=== PATIENT | female | born 1930 | race Caucasian/White ===

== ENCOUNTER 2017-08-11 18:57 | Inpatient (IN) | payer BC, MEDICARE ==
[2017-08-11 19:55] LABS: Hematocrit 42 % (35-47); Hemoglobin 13.8 g/dl (12.0-16.0); Mean Corpuscular HGB Conc 33 g/dl (31-36); Mean Corpuscular Hemoglobin 28 pg (27-31); Mean Corpuscular Volume 85 fL (80-97); Mean Platelet Volume 7.4 um3 (7.4-10.4); Platelet Count 327 10^3/ul (150-450); Red Blood Count 4.95 10^6/ul (4.0-5.4); Red Cell Distribution Width 15 % (10.5-15); White Blood Count 22.5 10^3/ul (3.5-10.8)
[2017-08-11 20:05] LABS: EGFR Non-African American 83.5 (>60)
[2017-08-11 20:22] LABS: ABS Basophils 0 10^3/ul (0-0.2); ABS Eosinophils 0 10^3/ul (0-0.6); ABS Lymphocytes 0.9 10^3/ul (1.0-4.8); ABS Neutrophils 20.5 10^3/ul (1.5-7.7); ABS Nucleated RBC 0 10^3/ul; Eosinophil % 0 % (0-6); Lymphocyte % 4.1 % (25-47); Nucleated Red Blood Cells % 0
[2017-08-11] MEDS ORDERED: NS 0.9% 1000 ML* 1,000 ML IV SCH (21:15)
--- NOTE | 2017-08-11 21:52 | RAD ---
HISTORY: Shortness of breath COMPARISONS: September 23, 2014 VIEWS: 1: frontal portable view of the chest at 9:35 PM FINDINGS: LINES AND TUBES: None. CARDIOMEDIASTINAL SILHOUETTE: The aorta is tortuous. The cardiomediastinal silhouette is otherwise normal for portable technique. PLEURA: The costophrenic angles are sharp. No pleural abnormalities are noted. LUNG PARENCHYMA: The lungs are clear. ABDOMEN: The upper abdomen is clear. There is no subphrenic gas. BONES AND SOFT TISSUES: Degenerative changes are noted along the spine. IMPRESSION: NO ACTIVE CARDIOPULMONARY DISEASE.
[2017-08-11 22:46] LABS: Urine Appearance Clear; Urine Blood Negative (Negative); Urine Color Amber; Urine Ketones 2+ (Negative); Urine Protein 1+(30 mg/dL) (Negative); Urine Specific Gravity 1.025 (1.010-1.030); Urine Urobilinogen Negative (Negative)
[2017-08-11] MEDS ORDERED: Levofloxacin 500 MG IVPREMIX(* 500 MG/100 ML BAG IVPB ONE (23:07)
[2017-08-11] MEDS ORDERED: Iohexol 300* (CONTRAST) 10 ML SDV IV ONE (23:23)
[2017-08-12] MEDS ORDERED: metroNIDAZOLE IV 500 MG/100ML* 500 MG/100 ML BAG IVPB ONE (00:39)
[2017-08-12] MEDS ORDERED: Ondansetron INJ* 2 MG/ML VIAL IV PRN (01:29)
[2017-08-12] MEDS ORDERED: NS 0.9% 1000 ML* 1,000 ML IV ONE (01:29)
[2017-08-12] MEDS ORDERED: NS 0.9% 1000 ML* 1,000 ML IV SCH ×2 (01:30→08:39)
[2017-08-12] MEDS: metroNIDAZOLE IV 500 MG/100ML* 500 MG/100 ML BAG IVPB SCH ×3 (04:08→19:21)
[2017-08-12] MEDS: Heparin VIAL(*) 5000 UNITS/ML VIAL (FIVE THOUSAND) SUBCUT SCH ×3 (05:53→21:41)
[2017-08-12 07:53] LABS: ABS Basophils 0.1 10^3/ul (0-0.2); ABS Eosinophils 0 10^3/ul (0-0.6); ABS Lymphocytes 0.8 10^3/ul (1.0-4.8); ABS Monocytes 0.9 10^3/ul (0-0.8); ABS Neutrophils 13.7 10^3/ul (1.5-7.7); ABS Nucleated RBC 0 10^3/ul; Eosinophil % 0.1 % (0-6); Hematocrit 33 % (35-47); Hemoglobin 11.2 g/dl (12.0-16.0); Lymphocyte % 5.1 % (25-47); Mean Corpuscular HGB Conc 34 g/dl (31-36); Mean Corpuscular Hemoglobin 28 pg (27-31); Mean Corpuscular Volume 84 fL (80-97); Mean Platelet Volume 7.2 um3 (7.4-10.4); Nucleated Red Blood Cells % 0; Platelet Count 315 10^3/ul (150-450); Red Blood Count 3.96 10^6/ul (4.0-5.4); Red Cell Distribution Width 15 % (10.5-15); White Blood Count 15.5 10^3/ul (3.5-10.8)
--- NOTE | 2017-08-12 07:53 | RAD ---
INDICATION: Abdominal pain. COMPARISON: There are no prior studies available for comparison. TECHNIQUE: A CT scan of the abdomen and pelvis was performed with intravenous and oral contrast following intravenous injection of 72 ml of Omnipaque 300 nonionic contrast. Contiguous axial sections were obtained from the lung bases through the symphysis pubis. Images were reconstructed in the coronal and sagittal planes. FINDINGS: There is mild dependent bilateral lower lobe subsegmental atelectasis. No pleural effusion is present. The liver and spleen are within normal limits in size without significant focal abnormality. No calcified gallstones are seen. The pancreas appears to be within normal limits in size. There is mild thickening of the left adrenal gland. The right adrenal gland appears to be within normal limits. There is mild perinephric stranding. The kidneys are normal in size. No focal renal abnormality or hydronephrosis is seen. No urinary bladder wall thickening was present. The aorta is normal in caliber with moderate calcific plaque present. No significant enlarged retroperitoneal lymph nodes are seen. The stomach, small and large bowel appear nondistended. The appendix is not visualized. There is mild to moderate descending and sigmoid diverticulosis. There is circumferential thickening of the mid sigmoid colon with mild stranding in the adjacent mesenteric fat. These findings are nonspecific although suggestive of diverticulitis or colitis. Recommend clinical follow-up to resolution to exclude an underlying mass. No abscess is seen. The patient is status post hysterectomy. No free intraperitoneal air or fluid is seen. There is a moderate to severe chronic appearing compression fracture of the T11 vertebral body and mild compression fractures of the inferior endplates of the L3 and L4 vertebral bodies. IMPRESSION: 1. THICKENING OF THE WALL OF THE MID SIGMOID COLON LIKELY DUE TO DIVERTICULITIS LESS LIKELY COLITIS. RECOMMEND FOLLOW-UP TO RESOLUTION AND EXCLUDE AN UNDERLYING COLONIC MASS. 2. CHRONIC APPEARING VERTEBRAL COMPRESSION FRACTURES NOTED.
--- NOTE | 2017-08-12 08:19 | PN ---
Subjective - Subjective Reason for Note: Progress Note History: I have reviewed the history from the patient. Her daughter Marli Chaney lives in [place] and came to [place] 5 days ago for the summer. I obtained a history from her. A few weeks back - same symptoms - abdo pain, nausea and diarrhea. This recovered - but the stomach cramping ( chronic) remained. She stopped eating. She felt sick. 2 days ago she had an acute onset of being up at night with vomiting, chills and diarrhea. She was violently ill. She has had anorexia, in bed sleeping a lot. She couldn't sit up as she was in pain - worse than her chronic pain. Her hearing has worsened and she needs hearing aids. She is living independently. Her memory - short term memory loss. I discussed capacity - daughter knows she wants to be DNR and thinks she has capacity. 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 Osteoporosis (Chronic) M81.0 Vertebral compression fracture (Chronic) [id number] Current Medications: Current Medications Acetaminophen (Tylenol Tab*) 650 mg PO Q4H PRN PRN Reason: FEVER/PAIN Heparin Sodium (Porcine) (Heparin Vial(*)) 5,000 units SUBCUT Q8HR [facility] Last Admin: 08/12/17 05:53 Dose: 5,000 units Ciprofloxacin/Dextrose (Cipro 400 Mg Ivpremix(*)) 400 mg in 200 mls @ 200 mls/ hr IVPB Q12H [facility] Metronidazole/Sodium Chloride (Flagyl 500 Mg Ivpb*) 500 mg in 100 mls @ 100 mls /hr IVPB Q8H [facility] Last Admin: 08/12/17 04:08 Dose: 100 mls/hr Sodium Chloride (Ns 0.9% 1000 Ml*) 1,000 mls @ 100 mls/hr IV PER RATE [facility] Last Admin: 08/12/17 04:11 Dose: 100 mls/hr Ondansetron HCl (Zofran Inj*) 4 mg IV Q6H PRN PRN Reason: NAUSEA - Review of Systems Pulmonary: Negative: Cough, Sputum, Respiratory Distress Cardiology: Negative: Chest Pain, Shortness of Breath, Palpitations, Swelling of Ankles Gastroenterology: Positive: Abdominal Pain, Nausea, Vomiting, Anorexia, Diarrhea , Change in Bowel Habits Negative: Constipation Genital - Urinary: Negative: Dysuria, Hematuria Musculoskeletal: Positive: Low Back Pain Neurology: Positive: Headache Psychiatry: Positive: Normal Home Medications: Home Medications Medication Instructions Recorded Confirmed Type Lisinopril/HCTZ (NF) 1 tab PO QAM 08/11/17 08/11/17 History [Zestoretic (NF)] Allergies: Allergies Allergy/AdvReac Type Severity Reaction Status Date / Time No Known Allergies Allergy Verified 10/31/13 11:41 Objective - Vital Signs Vital Signs: Vital Signs 08/12/17 08/12/17 08/12/17 01:33 02:00 02:04 Temperature Pulse Rate 92 89 89 Respiratory Rate Blood Pressure 144/78 154/59 (mmHg) O2 Sat by Pulse 98 98 97 Oximetry 08/12/17 08/12/17 08/12/17 02:34 02:56 03:00 Temperature 98.5 F 98.8 F Pulse Rate 84 89 92 Respiratory 20 17 Rate Blood Pressure 165/74 154/59 136/52 (mmHg) O2 Sat by Pulse 97 98 98 Oximetry - Intake and Output Intake and Output: Intake & Output 08/09/17 08/10/17 08/11/17 08/12/17 11:59 11:59 11:59 11:59 Intake Total 1060 Balance 1060 Weight 118 lb 9.6 oz Intake: IV Fluids 1060 NS (0.9%) 60 Oral 0 Intake and Output Start: 08/12/17 02: 09 Freq: DAILY@0600,1400,2200 Status: Active Protocol: Document 08/12/17 05:36 [id number] (Rec: 08/12/17 05:36 [id number]) - Physical Exam General Physical Exam Comment: She is having diarrhea. She recognizes me. General: No Cyanosis, No Anemia, No Jaundice, No Clubbing Skin: Normal: Rash Lungs and Chest: Yes: Chest Expansion Full, Chest Expansion Symetrica, Percussion Note Resonant, Vessicular Breath Sounds. No: Crackles, Wheezes Heart Rate and Rhythm: Regular Additional Cardiovascular: Yes: Normal Heart Sounds. No: Heart Murmur, Carotid Bruits, Pedal Edema Abdominal Exam: Yes: Soft, Abdominal Tenderness, Bowel Sounds Present. No: Distention, Abdominal Mass, Hepatomegaly, Guarding, Rebound Tenderness - Extremities Cranial Nerves II-XII Intact: Yes Limbs: Normal Power, Normal Tone - Neuro Orientation: Person, Time Speech: Expressive Results - Results Lab Results: Laboratory Results - last 24 hr 08/12/17 08/12/17 07:47 07:47 WBC 15.5 H RBC 3.96 L Hgb 11.2 L Hct 33 L MCV 84 MCH 28 MCHC 34 RDW 15 Plt Count 315 MPV 7.2 L Neut % (Auto) 88.2 H Lymph % (Auto) 5.1 L Yates % (Auto) 6.1 Eos % (Auto) 0.1 Baso % (Auto) 0.5 Absolute Neuts (auto) 13.7 H Absolute Lymphs (auto) 0.8 L Absolute Monos (auto) 0.9 H Absolute Eos (auto) 0 Absolute Basos (auto) 0.1 Absolute Nucleated RBC 0 Nucleated RBC % 0 Sodium 123 L Potassium 3.4 L Chloride 94 L Carbon Dioxide 21 L Anion Gap 8 BUN 9 Creatinine 0.50 L Est GFR ( Amer) 150.4 Est GFR (Non-Af Amer) 117.0 BUN/Creatinine Ratio 18.0 Glucose 92 Calcium 7.9 L Radiology Results: Patient Name: GAYLE FARAH Medical Record#: [id number] Ordering Physician: Rowdy Hitchcock MD Acct.#: [id number] : 1930 Age: 86 Sex: F Location: [address] [place] [address] Exam Date: 08/11/172103 ADM Status: ADM IN Order Information: CT ABD/PEL W Accession Number: [id number] CPT: 79042 INDICATION: Abdominal pain. COMPARISON: There are no prior studies available for comparison. TECHNIQUE: A CT scan of the abdomen and pelvis was performed with intravenous and oral contrast following intravenous injection of 72 ml of Omnipaque 300 nonionic contrast. Contiguous axial sections were obtained from the lung bases through the symphysis pubis. Images were reconstructed in the coronal and sagittal planes. FINDINGS: There is mild dependent bilateral lower lobe subsegmental atelectasis. No pleural effusion is present. The liver and spleen are within normal limits in size without significant focal abnormality. No calcified gallstones are seen. The pancreas appears to be within normal limits in size. There is mild thickening of the left adrenal gland. The right adrenal gland appears to be within normal limits. There is mild perinephric stranding. The kidneys are normal in size. No focal renal abnormality or hydronephrosis is seen. No urinary bladder wall thickening was present. The aorta is normal in caliber with moderate calcific plaque present. No significant enlarged retroperitoneal lymph nodes are seen. The stomach, small and large bowel appear nondistended. The appendix is not visualized. There is mild to moderate descending and sigmoid diverticulosis. There is circumferential thickening of the mid sigmoid colon with mild stranding in the adjacent mesenteric fat. These findings are nonspecific although suggestive of diverticulitis or colitis. Recommend clinical follow-up to resolution to exclude an underlying mass. No abscess is seen. The patient is status post hysterectomy. No free intraperitoneal air or fluid is seen. There is a moderate to severe chronic appearing compression fracture of the T11 vertebral body and mild compression fractures of the inferior endplates of the L3 and L4 vertebral bodies. IMPRESSION: 1. THICKENING OF THE WALL OF THE MID SIGMOID COLON LIKELY DUE TO DIVERTICULITIS LESS LIKELY COLITIS. RECOMMEND FOLLOW-UP TO RESOLUTION AND EXCLUDE AN UNDERLYING COLONIC MASS. 2. CHRONIC APPEARING VERTEBRAL COMPRESSION FRACTURES NOTED. <Electronically signed by Good Delacruz MD in OV> 08/12/17749 Dictated By: Good Delacruz MD Dictated Date/Time: 08/12/17 075 Transcribed Date/Time: 08/12/17 0738 Copy to: Patient Name: GAYLE FARAH Medical Record#: [id number] Ordering Physician: Rowdy Hitchcock MD Acct.#: [id number] : 1930 Age: 86 Sex: F Location: EMERGENCY DEPARTMENT Exam Date: 08/11/172121 ADM Status: REG ER Order Information: CHEST AP PORTABLE Accession Number: [id number] CPT: 78573 HISTORY: Shortness of breath COMPARISONS: September 23, 2014 VIEWS: 1: frontal portable view of the chest at 9:35 PM FINDINGS: LINES AND TUBES: None. CARDIOMEDIASTINAL SILHOUETTE: The aorta is tortuous. The cardiomediastinal silhouette is otherwise normal for portable technique. PLEURA: The costophrenic angles are sharp. No pleural abnormalities are noted. LUNG PARENCHYMA: The lungs are clear. ABDOMEN: The upper abdomen is clear. There is no subphrenic gas. BONES AND SOFT TISSUES: Degenerative changes are noted along the spine. IMPRESSION: NO ACTIVE CARDIOPULMONARY DISEASE. <Electronically signed by Rd Chen MD in OV> 08/11/172147 Dictated By: Rd Chen MD Dictated Date/Time: 08/11/172147 Transcribed Date/Time: 08/11/172147 Copy to: CC:Rowdy Hitchcock MD; Pineda Mendez MD Imaging - [facility] Imaging [facility] Urgent [facility] Urgent [place] [address] [address] ph ([phone]) ph ([phone]) ph ([phone]) 1 of 1 1 of 2 Assessment - Problem List Assessment: Patient Problems Abdominal pain (Acute) Acute diverticulitis (Acute) DNR (do not resuscitate) (Acute) Hypo-osmolality and hyponatremia (Acute) Nausea vomiting and diarrhea (Acute) Depression (Chronic) Essential hypertension (Chronic) GERD (gastroesophageal reflux disease) (Chronic) Low back pain (Chronic) Memory impairment of gradual onset (Chronic) Osteoporosis (Chronic) Vertebral compression fracture (Chronic) Plan: Abdominal pain (Acute)Acute diverticulitis (Acute) Nausea vomiting and diarrhea (Acute) Our working diagnosis is acute diverticulitis. However, it remains possible she has colitis or a bowel malignancy. I will check a CEA. If she doesn't respond to antibacterial treatment, I will obtain a GI consultation. Thus far her WBC has come down some. She is hemodynamically stable. DNR (do not resuscitate) (Acute) Hypo-osmolality and hyponatremia (Acute) Her sodium has come up to 123. I will limit oral fluids and stop IV saline - her BUN/CR are on target. For Q12 hour BMP Depression (Chronic) According to daughter, this is inactive Essential hypertension (Chronic) Not exacerbated GERD (gastroesophageal reflux disease) (Chronic) Vertebral compression fracture (Chronic) inactive Osteoporosis (Chronic)Low back pain (Chronic) chronic problem Memory impairment of gradual onset (Chronic) - she has not had an OV to my office since 03/19/2015. This may relate to her memory impairment. Her daughter is in town and states she has short term memory issues, but appears to be safe. I will address this. I spoke to the patient and to her daughter Marli Chaney on the phone. I told them the likely therapeutic plan and they agreed with this.
--- NOTE | 2017-08-12 11:03 | HP ---
CC: Dr. Mendez * HISTORY AND PHYSICAL: DATE OF ADMISSION: 08/12/17 PRIMARY CARE PROVIDER: Dr. Mendez. ATTENDING PHYSICIAN WHILE IN THE HOSPITAL: Dr. Anil Quach * (report being dictated by Altaf Snyder NP). CHIEF COMPLAINT: 1. Nausea. 2. Diarrhea. 3. Lower abdominal cramping. 4. Vomiting. HISTORY OF PRESENT ILLNESS: Ms. Sanchez is an 86-year-old female patient, she really carries a history of hypertension and GERD only. She also has a history of tobacco abuse. She smokes about half a pack a day. She has been smoking for 50 plus years. She is coming in today stating that last couple of days, she has had progressive worsening lower abdominal cramping that is worse, that has been coming and going in waves. Mostly, she describes it on the right lower and left lower quadrants. She says it has been getting progressively worse. The daughter does state that she has a long-standing history of abdominal pain but the characteristics of this seemed to be worse. In addition to this, the patient has also been having complaints of watery explosive diarrhea that she has been having for the last couple of days; it has been getting worse. There has been a decreased appetite. The patient thinks that she may have had chills and she has had intermittent episodes of nausea and vomiting in the last the couple of days as well. The patient denied having any chest pain or shortness of breath. There have been no cold symptoms or URI symptoms. No coughing and no shortness of breath. She denied any abdominal distention and denied having any bloody stools, tarry stools, or denied any coffee-ground emesis or radha blood within her emesis. There have been no known sick contacts; however, the patient does receive care with aides. In addition to this, the patient also does have some grandchildren as well. She came into the ED today and it was noted that she had a significant white count, sodium was low, her CRP was up, and because of this we were asked to evaluate for admission. PAST MEDICAL HISTORY: Significant for: 1. Hypertension. 2. GERD. PAST SURGICAL HISTORY: 1. She has had tonsillectomy. 2. Hysterectomy. 3. Cataract extraction. 4. She has had esophageal stretching. MEDICATIONS: Home meds according to the list provided include lisinopril/ hydrochlorothiazide 1 tablet daily. ALLERGIES TO MEDICATIONS: Include no known drug allergies. FAMILY HISTORY: She says her mother of old age. Father had a history of alcoholism and cirrhosis. SOCIAL HISTORY: She is a [id number]-a-day smoker. Does not drink alcohol. She smoked for about 50 plus years. Surrogate decision makers are her children. REVIEW OF SYSTEMS: There is no documented fever. She is denying significant weight change. There is no double vision. Denies having any ear discharge. No rhinorrhea. No sore throat, no thyroid enlargement. Denied having any chest pain. There is no orthopnea. There is no nocturnal dyspnea. She does admit to abdominal pain, nausea, vomiting, and diarrhea per my HPI. There is no dysuria, no frequency. No seizure, no loss of consciousness. No pruritus and no skin ulcerations. Review of 14 systems completed, all others negative. PHYSICAL EXAMINATION GENERAL: At this time, Ms. Sanchez is an 86-year-old female patient. She is sitting in the ED stretcher. She does not appear to be in any acute distress. VITAL SIGNS: Blood pressure 129/76, pulse 97, respirations 18, O2 sat 96%, temperature 98.9. HEENT: Head is atraumatic and normocephalic. Eyes: EOMs are intact. Sclerae are anicteric and not pale. Throat: Oral mucosa appears to be dry. No oropharyngeal erythema. NECK: Supple. LUNGS: Clear to auscultation bilaterally. No wheezes, rales, or rhonchi. HEART: Sounds S1, S2. Regular rate and rhythm. No murmurs, rubs, or gallops. ABDOMEN: Soft, it was flat. Tenderness was elicited in the left lower quadrant. EXTREMITIES: Pulses were 2+ throughout. She is moving all 4 extremities with 5 /5 strength. NEUROLOGICAL: She is awake, she is alert, she is oriented to place and self. Speech clear. Tongue midline. [employer] were equal. No facial drooping. No gross focal deficits. SKIN: Intact. DIAGNOSTIC STUDIES/LAB DATA: WBC of 22.5, RBC of 4.95, hemoglobin 13.8, hematocrit 42, platelet count 327. Sodium is 120, potassium is 3.9, chloride of 88, bicarb 22, BUN 13, creatinine 0.67, glucose 99, serum osmol 253, lactate 1, calcium 9.1. Total bili 0.9, AST 15, ALT 8, alk phos 59. CRP 192. Lipase 15. Urine showed 1+ protein, 2+ ketones, 3+ leukocyte esterase, 3+ wbc's, 1+ rbc 's, absent bacteria, her urine osmol was 739, urine sodium was less than 18. She did have an abdominal and pelvis CT today along with a chest x-ray. Chest x-ray did show no active cardiopulmonary disease. CT impression: Moderate wall thickening and adjacent edema involving the proximal sigmoid colon likely due to diverticulitis or colitis. Recommend followup to ensure resolution to exclude underlying colon mass. No evidence of perforation or abscess at this time. No evidence of bowel obstruction or free air. Appendix is not visualized. She has a compression fracture at T11, which is chronic appearing and she had bilateral perinephric edema. No renal or urinary calculi. Old medical records were reviewed. ASSESSMENT AND PLAN: Ms. Sanchez is an 86-year-old female patient coming into the ED today with complaints of 2 days' history of diarrhea with nausea, vomiting, and lower abdominal cramping. She will be admitted under inpatient status for: 1. Colitis with signs of systemic inflammatory response syndrome and sepsis. She does have an obvious infection; it could be viral. It makes me concerned that this is not diverticulitis since that she is having the vomiting and the pain is kind of coming and going and cramps. So, this could be gastroenteritis ; it is viral. I do think she deserves antibiotics in the form of Cipro and Flagyl. She got Levaquin down here tonight, so I will give her Cipro tomorrow evening. The patient also will be given a liter of fluid. She will be pancultured. I will go ahead and put her on clear liquid diet and we will continue to follow her. 2. Hypertension. I am going to hold her medications in the setting of acute illness. 3. Gastroesophageal reflux disease. Continue her current medical regimen. 4. Hyponatremia. This is probably secondary to dehydration from the diarrhea and the hydrochlorothiazide. I am going to stop the hydrochlorothiazide. I am going to hydrate the patient. I am going to repeat the BMP in the morning and follow it every 6 hours. 5. DVT prophylaxis. She is high risk. She will be placed on heparin subcu. 6. Code status. She wished to be a DNR. 7. Fluids, electrolytes, and nutrition. Clear liquid diet and then again normal saline at 100 an hour after a bolus down here in the ER. TIME SPENT: On the admission was 60 minutes; greater than half that time was spent [id number] with the patient, obtaining my history and physical, the other half of the time spent going over the plan of care with the patient and implementing the plan of care. I did discuss plan of care with my attending, Dr. Quach; he is in agreement. ALTAF SNYDER, DIE BAKER [id number]/CPS #: [id number] KELSIE
[2017-08-12] MEDS ORDERED: Ondansetron 40 MG VIAL* 2 MG/ML 20 ML VIAL IV PRN (14:00)
[2017-08-12] MEDS: Ciprofloxacin 400MG IVPREMIX(* 400 MG/200 ML BAG IVPB SCH ×2 (19:27→21:11)
[2017-08-13] MEDS: metroNIDAZOLE IV 500 MG/100ML* 500 MG/100 ML BAG IVPB SCH ×3 (02:09→17:59)
[2017-08-13] MEDS: Heparin VIAL(*) 5000 UNITS/ML VIAL (FIVE THOUSAND) SUBCUT SCH ×3 (05:31→21:32)
[2017-08-13] MEDS: Ciprofloxacin 400MG IVPREMIX(* 400 MG/200 ML BAG IVPB SCH ×2 (08:44→20:24)
[2017-08-13 08:53] LABS: ABS Basophils 0.1 10^3/ul (0-0.2); ABS Eosinophils 0.1 10^3/ul (0-0.6); ABS Lymphocytes 1.5 10^3/ul (1.0-4.8); ABS Monocytes 1.1 10^3/ul (0-0.8); ABS Neutrophils 6.9 10^3/ul (1.5-7.7); ABS Nucleated RBC 0 10^3/ul; Eosinophil % 0.7 % (0-6); Hematocrit 31 % (35-47); Hemoglobin 10.5 g/dl (12.0-16.0); Lymphocyte % 15.9 % (25-47); Mean Corpuscular HGB Conc 34 g/dl (31-36); Mean Corpuscular Hemoglobin 29 pg (27-31); Mean Corpuscular Volume 84 fL (80-97); Mean Platelet Volume 7.7 um3 (7.4-10.4); Nucleated Red Blood Cells % 0; Platelet Count 288 10^3/ul (150-450); Red Blood Count 3.67 10^6/ul (4.0-5.4); Red Cell Distribution Width 15 % (10.5-15); White Blood Count 9.7 10^3/ul (3.5-10.8)
[2017-08-13 09:18] LABS: EGFR Non-African American 139.2 (>60)
--- NOTE | 2017-08-13 11:02 | PN ---
Subjective - Subjective Reason for Note: Progress Note History: She is feeling much better today. She has had no nausea or vomiting. The diarrhea has stopped. She continues to have lower abdo tenderness. 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 Osteoporosis (Chronic) M81.0 Vertebral compression fracture (Chronic) [id number] Current Medications: Current Medications Acetaminophen (Tylenol Tab*) 650 mg PO Q4H PRN PRN Reason: FEVER/PAIN Heparin Sodium (Porcine) (Heparin Vial(*)) 5,000 units SUBCUT Q8HR [facility] Last Admin: 08/13/17 05:31 Dose: 5,000 units Ciprofloxacin/Dextrose (Cipro 400 Mg Ivpremix(*)) 400 mg in 200 mls @ 200 mls/ hr IVPB Q12H [facility] Last Admin: 08/13/17 08:44 Dose: 200 mls/hr Metronidazole/Sodium Chloride (Flagyl 500 Mg Ivpb*) 500 mg in 100 mls @ 100 mls /hr IVPB Q8H [facility] Last Admin: 08/13/17 09:51 Dose: 100 mls/hr Sodium Chloride (Ns 0.9% 1000 Ml*) 1,000 mls @ 70 mls/hr IV PER RATE [facility] Last Admin: 08/12/17 17:37 Dose: 70 mls/hr Ondansetron HCl (Zofran 40 Mg Vial*) 4 mg IV Q6H PRN PRN Reason: NAUSEA Last Admin: 08/12/17 14:29 Dose: 4 mg - Review of Systems Constitutional Symptoms: Yes: Weakness, No: Fever Pulmonary: Negative: Cough, Sputum Cardiology: Negative: Chest Pain, Shortness of Breath, Palpitations, Swelling of Ankles Gastroenterology: Positive: Normal, Abdominal Pain Negative: Nausea, Vomiting, Anorexia, Constipation, Diarrhea Home Medications: Home Medications Medication Instructions Recorded Confirmed Type Lisinopril/HCTZ 20/25(NF) 1 tab PO QAM 08/11/17 08/11/17 History [Zestoretic (NF)] Allergies: Allergies Allergy/AdvReac Type Severity Reaction Status Date / Time No Known Allergies Allergy Verified 10/31/13 11:41 Objective - Vital Signs Vital Signs: Vital Signs 08/12/17 08/12/17 08/12/17 15:08 15:15 19:49 Temperature 98.0 F 98.0 F 98.7 F Pulse Rate 79 79 81 Respiratory 17 17 17 Rate Blood Pressure 135/46 135/46 147/58 (mmHg) O2 Sat by Pulse 99 99 99 Oximetry 08/12/17 08/13/17 08/13/17 23:05 02:47 04:28 Temperature 98.8 F 98.0 F Pulse Rate 80 81 Respiratory 16 16 Rate Blood Pressure 109/43 120/42 (mmHg) O2 Sat by Pulse 95 97 97 Oximetry 08/13/17 08/13/17 07:14 08:00 Temperature 98.6 F Pulse Rate 71 Respiratory 18 18 Rate Blood Pressure 132/41 (mmHg) O2 Sat by Pulse 98 Oximetry - Intake and Output Intake and Output: Intake & Output 08/10/17 08/11/17 08/12/17 08/13/17 11:59 11:59 11:59 11:59 Intake Total 1634 1300 Output Total 352 Balance 1634 948 Weight 118 lb 9.6 oz Intake: IV Fluids 1525 580 NS (0.9%) 525 580 IVPB 109 ABX - FLAGYL 109 Oral 0 720 Output: Urine 352 Other: Estimated Void Small # Bowel Movements 0 Estimated Stool Amount Small # Voids 0 ADLs: Meal Record Start: 08/12/17 02: 09 Freq: DAILY@0900,1400,1800 Status: Active Protocol: Document 08/12/17 09:00 [id number] (Rec: 08/12/17 10:20 [id number] MED-C09) Document 08/12/17 14:00 [id number] (Rec: 08/12/17 14:21 [id number] MED-C11) Document 08/12/17 18:00 [id number] (Rec: 08/12/17 18:30 [id number] MED-C09) Document 08/13/17 09:00 [id number] (Rec: 08/13/17 09:55 [id number] MED-M04) Intake and Output Start: 08/12/17 02: 09 Freq: DAILY@0600,1400,2200 Status: Active Protocol: Document 08/12/17 05:36 [id number] (Rec: 08/12/17 05:36 [id number] MED-C09) Document 08/12/17 14:00 [id number] (Rec: 08/12/17 14:21 [id number] MED-C11) Document 08/12/17 15:36 [id number] (Rec: 08/12/17 15:36 [id number] MED-C11) Document 08/12/17 20:53 [id number] (Rec: 08/12/17 20:54 [id number] MED-C09) Document 08/13/17 06:00 [id number] (Rec: 08/13/17 06:37 [id number] MED-C11) - Physical Exam General Physical Exam Comment: Warm and well perfused - in no distress General: No Cyanosis, No Anemia, No Jaundice, No Clubbing Skin: Normal: Rash Lungs and Chest: Yes: Chest Expansion Full, Chest Expansion Symetrica, Percussion Note Resonant, Vessicular Breath Sounds. No: Crackles, Wheezes Heart Rate and Rhythm: Regular Additional Cardiovascular: Yes: Normal Heart Sounds. No: Heart Murmur, Pedal Edema Abdominal Exam: Yes: Soft, Abdominal Tenderness - mild lower quadrant tenderness , Bowel Sounds Present. No: Distention, Abdominal Mass, Hepatomegaly, Guarding , Rebound Tenderness Results - Results Lab Results: Laboratory Results - last 24 hr 08/12/17 08/13/17 08/13/17 14:58 08:31 08:31 WBC 9.7 RBC 3.67 L Hgb 10.5 L Hct 31 L MCV 84 MCH 29 MCHC 34 RDW 15 Plt Count 288 MPV 7.7 Neut % (Auto) 71.0 Lymph % (Auto) 15.9 L Piatt % (Auto) 11.6 H Eos % (Auto) 0.7 Baso % (Auto) 0.8 Absolute Neuts (auto) 6.9 Absolute Lymphs (auto) 1.5 Absolute Monos (auto) 1.1 H Absolute Eos (auto) 0.1 Absolute Basos (auto) 0.1 Absolute Nucleated RBC 0 Nucleated RBC % 0 Sodium 123 L 128 L Potassium 3.3 L 3.2 L Chloride 95 L 100 L Carbon Dioxide 21 L 20 L Anion Gap 7 8 BUN 9 5 L Creatinine 0.54 0.43 L Est GFR ( Amer) 137.7 179.0 Est GFR (Non-Af Amer) 107.0 139.2 BUN/Creatinine Ratio 16.7 11.6 Glucose 79 89 Calcium 7.4 L 7.7 L C-Reactive Protein 87.09 H Carcinoembryonic Ag 5.3 H Assessment - Problem List Assessment: Patient Problems Abdominal pain (Acute) Acute diverticulitis (Acute) DNR (do not resuscitate) (Acute) Hypo-osmolality and hyponatremia (Acute) Nausea vomiting and diarrhea (Acute) Depression (Chronic) Essential hypertension (Chronic) GERD (gastroesophageal reflux disease) (Chronic) Low back pain (Chronic) Memory impairment of gradual onset (Chronic) Osteoporosis (Chronic) Vertebral compression fracture (Chronic) Plan: She is improving. I will stop the IVF. She will progress her diet. I will have her mobilized with an aim to discharging her tomorrow. I discussed this with the patient and called Marli Chaney, her daughter.
[2017-08-13] MEDS: Acetaminophen TAB* 325 MG PO PRN (13:33)
[2017-08-14] MEDS: metroNIDAZOLE IV 500 MG/100ML* 500 MG/100 ML BAG IVPB SCH ×2 (02:03→12:55)
[2017-08-14] MEDS: Acetaminophen TAB* 325 MG PO PRN (03:12)
[2017-08-14] MEDS: Heparin VIAL(*) 5000 UNITS/ML VIAL (FIVE THOUSAND) SUBCUT SCH ×2 (05:35→14:31)
[2017-08-14 05:54] LABS: ABS Basophils 0.1 10^3/ul (0-0.2); ABS Eosinophils 0.1 10^3/ul (0-0.6); ABS Lymphocytes 2.2 10^3/ul (1.0-4.8); ABS Monocytes 1.1 10^3/ul (0-0.8); ABS Neutrophils 5.9 10^3/ul (1.5-7.7); ABS Nucleated RBC 0 10^3/ul; Eosinophil % 1.3 % (0-6); Hematocrit 31 % (35-47); Hemoglobin 10.7 g/dl (12.0-16.0); Lymphocyte % 23.3 % (25-47); Mean Corpuscular HGB Conc 34 g/dl (31-36); Mean Corpuscular Hemoglobin 28 pg (27-31); Mean Corpuscular Volume 83 fL (80-97); Mean Platelet Volume 7.4 um3 (7.4-10.4); Nucleated Red Blood Cells % 0.1; Platelet Count 324 10^3/ul (150-450); Red Blood Count 3.76 10^6/ul (4.0-5.4); Red Cell Distribution Width 15 % (10.5-15); White Blood Count 9.3 10^3/ul (3.5-10.8)
[2017-08-14 06:16] LABS: EGFR Non-African American 119.7 (>60)
[2017-08-14 09:31] VITALS: BP 139/60
--- NOTE | 2017-08-14 10:22 | PN ---
Subjective - Subjective Reason for Note: Discharge Note History: She is much better. She has no further nausea, vomiting and doesn't remember when she had her last BM. She would like to go home. 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 Osteoporosis (Chronic) M81.0 Vertebral compression fracture (Chronic) [id number] Current Medications: Current Medications Acetaminophen (Tylenol Tab*) 650 mg PO Q4H PRN PRN Reason: FEVER/PAIN Last Admin: 08/14/17 03:12 Dose: 650 mg Heparin Sodium (Porcine) (Heparin Vial(*)) 5,000 units SUBCUT Q8HR [facility]ST Last Admin: 08/14/17 05:35 Dose: 5,000 units Ciprofloxacin/Dextrose (Cipro 400 Mg Ivpremix(*)) 400 mg in 200 mls @ 200 mls/ hr IVPB Q12H LAST Last Admin: 08/13/17 20:24 Dose: 200 mls/hr Metronidazole/Sodium Chloride (Flagyl 500 Mg Ivpb*) 500 mg in 100 mls @ 100 mls /hr IVPB Q8H LAST Last Admin: 08/14/17 02:03 Dose: 100 mls/hr Ondansetron HCl (Zofran 40 Mg Vial*) 4 mg IV Q6H PRN PRN Reason: NAUSEA Last Admin: 08/12/17 14:29 Dose: 4 mg Home Medications: Home Medications Medication Instructions Recorded Confirmed Type Lisinopril/HCTZ (NF) 1 tab PO QAM 08/11/17 08/11/17 History [Zestoretic (NF)] Allergies: Allergies Allergy/AdvReac Type Severity Reaction Status Date / Time No Known Allergies Allergy Verified 10/31/13 11:41 Objective - Vital Signs Vital Signs: Vital Signs 08/13/17 08/13/1718 11:24 15:07 19:09 Temperature 97.8 F 97.7 F 98.0 F Pulse Rate 66 68 79 Respiratory 18 18 18 Rate Blood Pressure 127/42 137/54 137/67 (mmHg) O2 Sat by Pulse 99 100 99 Oximetry 08/13/17 08/13/17 08/14/17 20:00 23:12 00:00 Temperature 97.7 F Pulse Rate 80 Respiratory 17 16 Rate Blood Pressure 133/52 (mmHg) O2 Sat by Pulse 100 98 Oximetry 08/14/17 08/14/17 03:11 07:56 Temperature 97.8 F 98.7 F Pulse Rate 84 73 Respiratory 16 18 Rate Blood Pressure 145/41 139/60 (mmHg) O2 Sat by Pulse 98 98 Oximetry - Intake and Output Intake and Output: Intake & Output 08/11/17 08/12/17 08/13/17 08/14/17 11:59 11:59 11:59 11:59 Intake Total 1634 2150 200 Output Total 352 775 Balance 1634 1798 -575 Weight 118 lb 9.6 oz Intake: IV Fluids 1525 1430 NS (0.9%) 525 1430 IVPB 109 ABX - FLAGYL 109 Oral 0 720 200 Output: Urine 352 775 Other: Estimated Void Small Medium # Bowel Movements 0 1 Estimated Stool Amount Small Small # Voids 0 0 ADLs: Meal Record Start: 08/12/17 02: 09 Freq: DAILY@0900,1400,1800 Status: Active Protocol: Document 08/12/17 09:00 [id number] (Rec: 08/12/17 10:20 [id number] MED-C09) Document 08/12/17 14:00 [id number] (Rec: 08/12/17 14:21 [id number] MED-C11) Document 08/12/17 18:00 [id number] (Rec: 08/12/17 18:30 [id number] MED-C09) Document 08/13/17 09:00 [id number] (Rec: 08/13/17 09:55 [id number] MED-M04) Document 08/13/17 14:00 [id number] (Rec: 08/13/17 15:18 [id number] MED-C09) Document 08/13/17 18:00 [id number] (Rec: 08/13/17 18:32 [id number] MED-C09) Intake and Output Start: 08/12/17 02: 09 Freq: DAILY@0600,1400,2200 Status: Active Protocol: Document 08/12/17 05:36 [id number] (Rec: 08/12/17 05:36 [id number] MED-C09) Document 08/12/17 14:00 [id number] (Rec: 08/12/17 14:21 [id number] MED-C11) Document 08/12/17 15:36 [id number] (Rec: 08/12/17 15:36 [id number] MED-C11) Document 08/12/17 20:53 [id number] (Rec: 08/12/17 20:54 [id number] MED-C09) Document 08/13/17 06:00 [id number] (Rec: 08/13/17 06:37 [id number] MED-C11) Document 08/13/17 14:00 [id number] (Rec: 08/13/17 15:18 [id number] MED-C09) Document 08/13/17 21:51 [id number] (Rec: 08/13/17 21:51 [id number] MED-C09) Document 08/14/17 06:00 [id number] (Rec: 08/14/17 06:20 [id number] MED-C09) - Physical Exam General: No Cyanosis, No Anemia, No Jaundice, No Clubbing Lungs and Chest: Yes: Chest Expansion Full, Chest Expansion Symetrica, Percussion Note Resonant, Vessicular Breath Sounds. No: Crackles, Wheezes Heart Rate and Rhythm: Regular JVP: Not Elevated Additional Cardiovascular: Yes: Normal Heart Sounds. No: Heart Murmur, Pedal Edema Abdominal Exam: Yes: Soft, Bowel Sounds Present. No: Distention, Abdominal Mass , Abdominal Tenderness Results - Results Lab Results: Laboratory Results - last 24 hr 08/12/17 08/14/17 08/14/17 01:30 05:40 05:40 WBC 9.3 RBC 3.76 L Hgb 10.7 L Hct 31 L MCV 83 MCH 28 MCHC 34 RDW 15 Plt Count 324 MPV 7.4 Neut % (Auto) 62.8 Lymph % (Auto) 23.3 L Douglas % (Auto) 12.0 H Eos % (Auto) 1.3 Baso % (Auto) 0.6 Absolute Neuts (auto) 5.9 Absolute Lymphs (auto) 2.2 Absolute Monos (auto) 1.1 H Absolute Eos (auto) 0.1 Absolute Basos (auto) 0.1 Absolute Nucleated RBC 0 Nucleated RBC % 0.1 Sodium 127 L Potassium 2.9 L Chloride 96 L Carbon Dioxide 24 Anion Gap 7 BUN 3 L Creatinine 0.49 L Est GFR ( Amer) 154.0 Est GFR (Non-Af Amer) 119.7 BUN/Creatinine Ratio 6.1 L Glucose 111 H Calcium 7.8 L C-Reactive Protein 74.06 H Parasite Exam See comment Assessment - Problem List Assessment: Patient Problems Abdominal pain (Acute) Acute diverticulitis (Acute) DNR (do not resuscitate) (Acute) Hypo-osmolality and hyponatremia (Acute) Nausea vomiting and diarrhea (Acute) Depression (Chronic) Essential hypertension (Chronic) GERD (gastroesophageal reflux disease) (Chronic) Low back pain (Chronic) Memory impairment of gradual onset (Chronic) Osteoporosis (Chronic) Vertebral compression fracture (Chronic) Plan: She is recovering well from her diarrhea. She is able to eat and drink. Her WBC , Neut% and CRP are all improving. I am going to change her to oral antibacterials for 1 week and discharge her home. I tried calling her daughter - no reply.
[2017-08-14] MEDS: Ciprofloxacin 400MG IVPREMIX(* 400 MG/200 ML BAG IVPB SCH (10:26)
== END 2017-08-14 14:35 | disposition home or self-care (01) | DRG 392 ==
LOC: ED 18:57 → MED 08-12 01:25
PROVIDERS: ADMIT Internal Medicine; ATTEND Internal Medicine
DX: K57.32 Diverticulitis of large intestine without perforation or abscess without bleeding (principal); E87.1 Hypo-osmolality and hyponatremia; E86.0 Dehydration; F32.9 Major depressive disorder, single episode, unspecified; I10 Essential (primary) hypertension; K21.9 Gastro-esophageal reflux disease without esophagitis; M54.5 Low back pain; M81.0 Age-related osteoporosis without current pathological fracture; F06.8 Other specified mental disorders due to known physiological condition; Z66 Do not resuscitate; M48.50XD Collapsed vertebra, not elsewhere classified, site unspecified, subsequent encounter for fracture with routine healing; Z79.899 Other long term (current) drug therapy; Z81.1 Family history of alcohol abuse and dependence; Z83.79 Family history of other diseases of the digestive system; F17.210 Nicotine dependence, cigarettes, uncomplicated
CPT/HCPCS: 36415; 71045; 74177; 80048; 80053; 81003; 81015; 82270; 82378; 83605; 83630; 83690; 83930; 83935; 84300; 85025; 86140; 87040; 87045; 87046; 87077; 87086; 87177; 87209; 87425; 87449; 87493; 87899; 99284; A9270-GY; J0744; J1644; J1956; J3490; Q9967

== ENCOUNTER 2017-09-02 15:50 | Observation (INO) | payer MEDICARE ==
--- NOTE | 2017-09-02 16:07 | ED ---
Neurological HPI - History of Current Complaint Chief Complaint: EDAltMentalStatus Stated Complaint: CONFUSION Time Seen by Provider: 09/02/17 15:54 Pain Intensity: 0 - Additional Pertinent History Primary Care Physician: [id number] - Allergy/Home Medications Allergies/Adverse Reactions: Allergies Allergy/AdvReac Type Severity Reaction Status Date / Time No Known Allergies Allergy Verified 10/31/13 11:41 PMH/Surg Hx/FS Hx/Imm Hx Endocrine/Hematology History: Denies: Hx Diabetes, Hx Anemia Cardiovascular History: Reports: Hx Hypertension - ON MEDICATION FOR GI History: Reports: Hx Gastroesophageal Reflux Disease - HX OF IN THE PAST, Other GI Disorders - HX GALLBLADDER PROBLEMS IN THE PAST. Hx abdominal pain w/ dx gas Denies: Hx Jaundice History: Denies: Hx Renal Disease Musculoskeletal History: Reports: Hx Osteoporosis Sensory History: Reports: Hx Cataracts - BILATERAL, Hx Contacts or Glasses - GLASSES Denies: Hx Hearing Aid Opthamlomology History: Reports: Hx Cataracts - BILATERAL, Hx Contacts or Glasses - GLASSES Neurological History: Reports: Hx Headaches - Surgical History Surgery Procedure, Year, and Place: 40 YEARS AGO-EXPLORATORY AND PARTIAL HYSTERECTOMY Hx Anesthesia Reactions: No Infectious Disease History: No Infectious Disease History: Denies: Traveled Outside the [place] in Last 30 Days - Family History Known Family History: Positive: Other - Reviewed and non-contributory - Social History Alcohol Use: Daily Alcohol Amount: MARTINI OR 2 IN THE EVENING Hx Substance Use: No Substance Use Type: Reports: None Hx Tobacco Use: Yes Smoking Status (MU): Heavy Every Day Tobacco Smoker Amount Used/How Often: >1/2 PPD X 64 YEARS Have You Smoked in the Last Year: Yes Physical Exam Vital Signs On Initial Exam: Initial Vitals Temp Pulse Resp BP Pulse Ox 99.3 F 93 15 213/90 98 09/02/17 16:00 09/02/17 16:00 09/02/17 16:00 09/02/17 16:00 09/02/17 16:00 Diagnostics - Vital Signs Vital Signs Temp Pulse Resp BP Pulse Ox 09/02/17 16:00 99.3 F 93 15 213/90 98 - Laboratory Lab Statement: Any lab studies that have been ordered have been reviewed, and results considered in the medical decision making process. Discharge - Discharge Plan Referrals: Pineda Mendez MD [Primary Care Provider] -
[2017-09-02] MEDS ORDERED: NS 0.9% 1000 ML* 1,000 ML IV ONE (16:47)
[2017-09-02 17:04] LABS: ABS Basophils 0 10^3/ul (0-0.2); ABS Eosinophils 0.1 10^3/ul (0-0.6); ABS Lymphocytes 1.5 10^3/ul (1.0-4.8); ABS Monocytes 0.7 10^3/ul (0-0.8); ABS Neutrophils 5.2 10^3/ul (1.5-7.7); ABS Nucleated RBC 0 10^3/ul; Eosinophil % 1.9 % (0-6); Hematocrit 38 % (35-47); Hemoglobin 12.5 g/dl (12.0-16.0); Lymphocyte % 19.7 % (25-47); Mean Corpuscular HGB Conc 33 g/dl (31-36); Mean Corpuscular Hemoglobin 28 pg (27-31); Mean Corpuscular Volume 85 fL (80-97); Mean Platelet Volume 7.1 um3 (7.4-10.4); Nucleated Red Blood Cells % 0.1; Platelet Count 483 10^3/ul (150-450); Red Blood Count 4.47 10^6/ul (4.00-5.40); Red Cell Distribution Width 16 % (10.5-15); White Blood Count 7.6 10^3/ul (3.5-10.8)
[2017-09-02] MEDS ORDERED: Labetalol IV* 5 MG/ML 20 ML VIAL IV PUSH ONE (17:12)
--- NOTE | 2017-09-02 17:15 | RAD ---
INDICATION: Confusion and word finding difficulty. COMPARISON: None. TECHNIQUE: Contiguous axial sections of the brain were obtained from the skull base to the vertex without contrast. FINDINGS: The ventricles, cisterns and sulci mild and symmetrical involutional changes not out of proportion for the patient's age.. There is mild to moderate periventricular and subcortical white matter hypoattenuation most consistent with chronic microvascular disease. The bernal-white matter differentiation is adequately maintained and there is no sulcal effacement. No significant focal abnormality or mass effect is present. There is no evidence for intracranial hemorrhage. There is coarse atherosclerotic calcification of the bilateral vertebral arteries and the bilateral petrous carotid arteries. No significant focal osseous abnormality is present. The visualized portion of the paranasal sinuses appear clear. The mastoid air cells are well aerated bilaterally. IMPRESSION: CT findings are compatible with age-appropriate involutional changes and chronic microvascular disease. There is no noncontrast CT apparent acute intracranial abnormality including intracranial hemorrhage. Findings were reported to Dr. Lorenzo over the telephone at 1710 hours on September 02, 2017.
[2017-09-02 17:27] LABS: EGFR Non-African American 86.4 (>60)
--- NOTE | 2017-09-02 17:27 | RAD ---
INDICATION: Acute neurologic deficits. COMPARISON: Chest x-ray August 11, 2017 TECHNIQUE: Single AP portable view of the chest was obtained. FINDINGS: Image quality is compromised due to the relative inferiority of a portable chest x-ray. The heart and mediastinum exhibit normal size and contour. There is stable calcification overlying the arch of the aorta. The lungs are grossly clear. There is no evidence of a large pleural effusion. Visualized bones are normal for the patient's age. IMPRESSION: No radiographic evidence for acute cardiopulmonary abnormality on this portable chest x-ray.
[2017-09-02 17:54] LABS: INR 0.9 (0.77-1.02)
[2017-09-02 18:21] LABS: Urine Appearance Clear; Urine Blood Negative (Negative); Urine Color Yellow; Urine Ketones 1+ (Negative); Urine Protein Negative (Negative); Urine Specific Gravity 1.018 (1.010-1.030); Urine Urobilinogen Negative (Negative)
--- NOTE | 2017-09-02 19:24 | RAD ---
CPT II Codes: 3100F INDICATION: Resolving aphasia COMPARISON: None TECHNIQUE: Multiple nolen scale, color and doppler tracings of the common, internal and external carotid and vertebral arteries were obtained. Stenosis estimations reflect velocity criteria that have been correlated to angiographic stenosis calculations based on the distal internal carotid diameter. Right carotid: There is mild partially calcified plaque within the right carotid bulb. The peak systolic velocity in the proximal right internal carotid artery is 74 cm/s and the maximum end-diastolic velocity is 22 cm/s. The peak systolic velocity in the distal common carotid artery is 86 cm/s and the maximum end-diastolic velocity is 17 cm/s. The internal to common carotid ratio is 0.8. This would be consistent with a less than 50% stenosis. Left carotid: There is mild and moderately calcified plaque within the left carotid bulb. The peak systolic velocity in the proximal right internal carotid artery is 63 cm/s and the maximum end-diastolic velocity is 18 cm/s. The peak systolic velocity in the distal common carotid artery is 71 cm/s and the maximum end-diastolic velocity is 14 cm/s. The internal to common carotid ratio is 0.89. This would be consistent with a less than 50% stenosis. Vertebrals: There is antegrade flow in both vertebral arteries. IMPRESSION: There is no sonographic evidence of hemodynamically significant stenosis in the bilateral carotid arteries.
--- NOTE | 2017-09-02 19:48 | ED ---
Araceli Everett Rebecca, scribed for Lena Lorenzo MD on 09/02/17 at 1702 . Neurological HPI - HPI Summary HPI Summary: Pt is an 86 y/o F accompanied by her son (Turner), daughter and grandson with a PMHx of dementia BIBA who presents to ED due to concern of aphasia, slurred speech and increased confusion. At 1500 today, the pt was on the phone with her son, Turner, when he noticed that she began having difficulty finding words, slurring her speech and repeatedly stating "I don't feel good, I don't know what 's wrong with me." Daughter reports that when she checked on her immediately after the phone call with her son ended, that the pt's speech was so slurred, she could not understand what was being said. Also notes that she is unable to recall details that she typically can, such as her address and dog's name. Sx have improved since onset and she currently reports feeling alright. Notes occasional abdominal pain, mild dysuria. Daughter denies noticing weakness and pt denies polyuria. Lisinopril was stopped at the end of July when she was in the ED for diverticulitis and daughter states that her only medication is Motrin. Pt lives with her daughter during the summer, who is also present in the ED. FHx stroke (sister, still living). While in the room for examination, BP is 215/96 and HR is in the low 80s. Pt sees Dr. Mendez and has NKDA. - History of Current Complaint Chief Complaint: EDAltMentalStatus Stated Complaint: CONFUSION Time Seen by Provider: 09/02/17 15:54 Hx Obtained From: Patient, Family/Safety Equipment Tester - Daughter Onset/Duration: Sudden Onset, Still Present - 1500 Pain Intensity: 0 Pain Scale Used: 0-10 Numeric Character: Impaired Speech - Slurred, Other: - Confusion Aggravating: Nothing Alleviating: Nothing Associated Signs and Symptoms: Positive: Confusion. Negative: Weakness - Additional Pertinent History Primary Care Physician: [id number] - Allergy/Home Medications Allergies/Adverse Reactions: Allergies Allergy/AdvReac Type Severity Reaction Status Date / Time No Known Allergies Allergy Verified 10/31/13 11:41 PMH/Surg Hx/FS Hx/Imm Hx Endocrine/Hematology History: Denies: Hx Diabetes, Hx Anemia Cardiovascular History: Reports: Hx Hypertension - ON MEDICATION FOR GI History: Reports: Hx Gastroesophageal Reflux Disease - HX OF IN THE PAST, Other GI Disorders - HX GALLBLADDER PROBLEMS IN THE PAST. Hx abdominal pain w/ dx gas Denies: Hx Jaundice History: Denies: Hx Renal Disease Musculoskeletal History: Reports: Hx Osteoporosis Sensory History: Reports: Hx Cataracts - BILATERAL, Hx Contacts or Glasses - GLASSES Denies: Hx Hearing Aid Opthamlomology History: Reports: Hx Cataracts - BILATERAL, Hx Contacts or Glasses - GLASSES Neurological History: Reports: Hx Dementia, Hx Headaches - Surgical History Surgery Procedure, Year, and Place: 40 YEARS AGO-EXPLORATORY AND PARTIAL HYSTERECTOMY. TONSILLECTOMY. APPY Hx Anesthesia Reactions: No Infectious Disease History: No Infectious Disease History: Denies: Traveled Outside the [place] in Last 30 Days - Family History Known Family History: Positive: Other - Cirrhosis, alcoholism (father), stroke ( sister) - Social History Alcohol Use: Daily Alcohol Amount: MARTINI OR 2 IN THE EVENING Hx Substance Use: No Substance Use Type: Reports: None Hx Tobacco Use: Yes Smoking Status (MU): Heavy Every Day Tobacco Smoker Amount Used/How Often: >1/2 PPD X 64 YEARS Have You Smoked in the Last Year: Yes Review of Systems Negative: Fever Positive: Abdominal Pain Positive: dysuria, other - NEGATIVE: Polyuria Neurological: Other - AMS (confusion), aphasia Positive: Slurred Speech. Negative: Weakness All Other Systems Reviewed And Are Negative: Yes Physical Exam - Summary Physical Exam Summary: Appearance: Ill-appearing, mild distress, well-nourished, hypertensive Skin: Warm, dry, blue discoloration of the tips of the toes of the left foot Head: Normal Head/Face inspection, atraumatic Eyes: Conjunctiva clear, exophthalmos, PERRL, EOMI, no nystagmus ENT: Normal inspection Neck: Supple, no nodes, no JVD, no bruits Respiratory: Lungs clear, normal breath sounds, no respiratory distress Cardio: RRR, No murmur, pulses normal, brisk capillary refill Abdomen: Soft, nontender, no masses, non-distended, no guarding, no rebound Bowel sounds: Present Musculoskeletal: Strength Intact/ROM intact, no calf tenderness, no edema. Psychological: Normal Neuro: A&O x3, CN II-XII intact, motor function 5/5, sensation intact, cerebellar normal, NIH 1 GCS: 14 Triage Information Reviewed: Yes Vital Signs On Initial Exam: Initial Vitals Temp Pulse Resp BP Pulse Ox 99.3 F 93 15 213/90 98 09/02/17 16:00 09/02/17 16:00 09/02/17 16:00 09/02/17 16:00 09/02/17 16:00 Vital Signs Reviewed: Yes - Johnston Coma Scale Best Eye Response: 4 - Spontaneous Best Motor Response: 6 - Obeys Commands Best Verbal Response: 4 - Confused Coma Scale Total: 14 Diagnostics - Vital Signs Vital Signs Temp Pulse Resp BP Pulse Ox 09/02/17 16:00 99.3 F 93 15 213/90 98 - Laboratory Result Diagrams: 09/02/17 16:48 09/02/17 16:48 Lab Statement: Any lab studies that have been ordered have been reviewed, and results considered in the medical decision making process. - Radiology CXR Xray Interpretation: No Acute Changes - No radiographic evidence for acute cardiopulmonary abnormality on this portable chest x-ray. ED physician reviewed this radiology report. Radiology Interpretation Completed By: Radiologist - CT Brain CT CT Interpretation: No Acute Changes - CT findings are compatible with age- appropriate involutional changes and chronic microvascular disease. There is no noncontrast CT apparent acute intracranial abnormality including intracranial hemorrhage. Findings were reported to Dr. Lorenzo over the telephone at 1710 hours on September 02, 2017. ED physician reviewed this report. CT Interpretation Completed By: Radiologist - EKG 1703 Cardiac Rate: NL - 73 bpm EKG Rhythm: Sinus Rhythm EKG Interpretation: Nl AVIVCT, nl QTC, nl axis NIH Scale - NIH Scale Level of Consciousness: Alert/Keenly Responsive Ask Patient the Month and His/Her Age: One Correct/Not Aphasic Ask Pt to Open/Close Eyes and Buffing Wheel Raker/Release Non-Paretic Hand: Both Correctly Best Gaze (Only Horizontal Eye Movement): Normal Visual Field Testing: No Visual Loss Facial Paresis-Pt to Smile & Close Eyes or Grimace Symmetry: Normal/Symmetrical Motor Function - Right Arm: No Drift-Holds 10 Seconds Motor Function - Left Arm: No Drift-Holds 10 Seconds Motor Function - Right Leg: No Drift-Holds 10 Seconds Motor Function - Left Leg: No Drift-Holds 10 Seconds Limb Ataxia-Must be out of Proportion to Weakness Present: Absent Sensory (Use Pinprick to Test Arms/Legs/Trunk/Face): Normal Best Language (Describe Picture, Name Items): No Aphasia Dysarthria (Read Several Words): Normal Extinction and Inattention: No Abnormality Total Score: 1 Re-Evaluation - Re-Evaluation First Eval Re-Evaluation Time: 18:25 Change: Improved Comment: Discussed asmission plan and consultations. Vital signs are: HR of 76 bpm, O2 sat of 97 on RA, respiratory rate of between 11 and 17 and BP of 155/75. Course/Dx - Diagnoses Provider Diagnoses: TIA (transient ischemic attack), Hypertensive urgency During the Visit The Following Alert/Code Occurred: Code Kothari - 1654 - Physician Notifications Discussed Care Of Patient With: Tara Silva Time Discussed With Above Provider: 17:00 Instructed by Provider To: Other - Will see the pt in the ED. Discussed care of pt with Dr. Norris Cuba at 1712 who reports that there is no hemorhage and no evidence of any acute infarct. Discussed care of pt with Dr. Mendez at 1741 who would like the pt admitted to [facility]. Dr. Silva recommends a TIA workup. Discussed care of pt with Dr. Sotelo at 1655 who accepts pt for admission. Discussed care of pt with Dr. Silva at 2006 who wants ASA 324 mg and no Plavix. - Critical Care Time Critical Care Time: 30-74 min - 30 minutes Discharge - Sign-Out/Discharge Documenting (check all that apply): Discharge/Admit/Transfer - Admit - Discharge Plan Condition: Stable Disposition: ADMITTED TO [facility] Referrals: Pineda Mendez MD [Primary Care Provider] - The documentation as recorded by the Araceli cano Rebecca accurately reflects the service I personally performed and the decisions made by me, Lena Lorenzo MD.
[2017-09-02] MEDS ORDERED: Enoxaparin(*) 40 MG/0.4 ML SYR SUBCUT SCH (20:00)
[2017-09-02] MEDS ORDERED: amLODIPine TAB* 5 MG PO SCH (20:00)
[2017-09-02] MEDS ORDERED: Aspirin 81 mg CHEW TAB* 81 MG TAB.CHEW PO ONE (20:06)
--- NOTE | 2017-09-02 20:50 | RAD ---
HISTORY: aphasia resolved, HTN COMPARISONS: Same day CT of the brain that shows evidence of chronic microvascular disease. TECHNIQUE: The following sequences were obtained of the head: Sagittal T1-weighted images, axial T2-weighted images, axial FLAIR images, axial susceptibility weighted images, axial T1-weighted images. Additionally, axial diffusion-weighted images were obtained with calculated apparent diffusion coefficients.. FINDINGS: HEMORRHAGE/INFARCT: There is no hemorrhage or acute infarct. MASSES/SHIFT: There is no mass or shift. EXTRA-AXIAL SPACES/MENINGES: There are no extra-axial fluid collections. SULCI AND VENTRICLES: The sulci and ventricles are normal in size and position for the patient's stated age. CEREBRUM: There is periventricular and subcortical white matter T2 bright hyperintensity predominantly adjacent to the ventricles with additional smaller subcentimeter foci scattered bilaterally. The brain parenchyma is otherwise normal in signal and the bernal-white matter differentiation is maintained. BRAINSTEM: There are no focal parenchymal abnormalities. CEREBELLUM: There are no focal parenchymal abnormalities. The cerebellar tonsils are normal in size and position. SELLA: The sella is normal. PINEAL: The pineal region is clear. CP ANGLE/TEMPORAL BONES: The labyrinthine structures are grossly normal. VESSELS: Normal flow-voids are noted within the visualized vertebral vasculature. DIFFUSION ABNORMALITIES: There are no diffusion abnormalities. PARANASAL SINUSES/MASTOIDS: The paranasal sinuses are clear. ORBITS: The orbits are unremarkable. BONES AND SOFT TISSUE: No bone or soft tissue abnormalities are noted. IMPRESSION: MR FINDINGS ARE MOST CONSISTENT WITH CHRONIC MICROVASCULAR DISEASE DESCRIBED ABOVE. IF THERE IS CLINICAL SUSPICION FOR ACUTE DEMYELINATING DISEASE FURTHER CHARACTERIZATION WITH CONTRAST-ENHANCED MRI OF THE BRAIN IS ADVISED.
--- NOTE | 2017-09-03 04:14 | HP ---
CC: Dr. Mendez; Dr. Silva.* ADMISSION HISTORY AND PHYSICAL: DATE OF ADMISSION: 09/02/17 CHIEF COMPLAINT: Trouble speaking. HISTORY OF PRESENT ILLNESS: Ms. Sanchez is an 86-year-old woman with a history of hypertension and GERD, who had an episode of unintelligible garbled speech that began at around 3 p.m. today when she was talking to her son on the phone. Her daughter was also in the home with her and when the son was concerned, he contacted the sister and she witnessed this garbled speech. It did not appear to be slurred speech. It was more unintelligible. She does not have any facial droop or lateralizing weakness. The patient spontaneously resolved within an hour and was really feeling her normal state when she arrived to the emergency department. The patient denies any history of stroke or vascular disease. The patient was just discharged from this hospital on 08/23/17 after an admission for abdominal pain, diverticulitis. She also had UTI during that admission. She was treated with Cipro and Flagyl and discharged. During the hospital stay, she also had hyponatremia. The discharge summary states that she was discharged on lisinopril/hydrochlorothiazide, but the daughter firmly states that she was told not to start this medication at home and thus she has not been on her blood pressure medications for the last 10 days at home. She had a UTI that resolved after the hospital stay and she finished the Cipro at home last week. PAST MEDICAL HISTORY: Include hypertension, GERD, mild cognitive impairment evolving into dementia, osteoporosis with a history of compression fracture, recent history of diverticulitis. PAST SURGICAL HISTORY: Includes tonsillectomy, hysterectomy, appendectomy, cataract removal and esophageal dilatation. MEDICATIONS: Her medications on admission are listed as lisinopril/ hydrochlorothiazide 20/25 one tab p.o. q.a.m., but according to the daughter she is not taking this. No other medication at this time. ALLERGIES: None. FAMILY HISTORY: Notable for a sister who has a stroke, who is alive. Mother and father reportedly have strokes also in their older years. The previous history and physical from three weeks ago stated that the father had alcoholism and cirrhosis and mother of old age. 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 She is . She has two children. Her daughter, Jody is her healthcare proxy, surrogate decision maker. The patient has been do not resuscitate per previous discussion with the primary care. Social history also includes one-plus pack a day smoker. No alcohol use. No drug use. REVIEW OF SYSTEMS: The patient denies any chest pain or palpitations. The patient denies any shortness of breath or hemoptysis, but does have a mild dry cough chronically. She does admit to some nausea after eating diary and some abdominal pain since discharge, but no diarrhea and no severe abdominal pain. The patient denies any hematuria or dysuria. Remainder of her 14-point review of systems is negative other than mentioned in HPI. PHYSICAL EXAMINATION GENERAL: She is alert, hard of hearing. No acute distress. VITAL SIGNS: Temperature was 37.4, pulse was 93, respirations 15, blood pressure 213/90, oxygen saturation 98%. HEENT: Head is normocephalic and atraumatic. Sclerae anicteric. Pupils are equal, round to light and accommodation. Oropharynx is moist. There is poor dentition. NECK: No JVD, no carotid bruits, no thyromegaly. LUNGS: Diminished throughout. Clear to auscultation. HEART: Regular rate and rhythm. No murmurs or gallops. ABDOMEN: Soft, there is mild epigastric tenderness. Positive bowel sounds. No hepatosplenomegaly. No masses. EXTREMITIES: No peripheral edema. Dorsalis pedis pulses are trace bilaterally. NEUROLOGIC: Cranial nerves II through XII are intact. Motor strength is 5/5 throughout. Deep tendon reflexes are 2+ and symmetric. PSYCHIATRIC: She is alert and oriented x3. LABORATORY DATA: Sodium 132, potassium 4.1, chloride 99, bicarb 27, BUN 15, creatinine 0.65, glucose 102, calcium 9.5, AST of 13, ALT 8. Lactic acid 1.1. White count 7.6, hemoglobin 12.5, hematocrit 38, platelets 483. Cholesterol 231 , LDL 154, HDL 54. INR 0.9. PTT 27.6. EKG showed normal sinus rhythm, normal axis, no ischemic ST or T wave changes. Chest x-ray was negative for infiltrate or effusion. Head CT shows some involutional changes related to ageing, but no acute hemorrhage or infarct. Carotid Dopplers are negative for significant occlusion or stenosis bilaterally. ASSESSMENT AND PLAN: An 86-year-old woman presenting with clear transient ischemic attack, symptoms seems to affect the Broca's area. The source could be a cardioembolic phenomenon such as from atrial fibrillation or a small plaque from other great vessels of the size of the carotids. The patient was discussed between the ER physician, Dr. Lorenzo and Dr. Silva and the plan was to admit her to telemetry, have the carotids done, which has completed as well as an MRI that is planned tonight. She is to be started on aspirin 325 mg per day. We also for her blood pressure started her back on lisinopril and skipped the hydrochlorothiazide, which may have caused recent hyponatremia. Because her blood pressure is still elevated, I am electing to start her on Norvasc 2.5 mg tonight as well. Because this was transient ischemic attack and not a stroke , full blood pressure control would be reasonable. CODE STATUS: Do not resuscitate. Do not intubate. MOLST form is updated tonight and the daughter will sign it. DVT prophylaxis will be subcutaneous Lovenox. [id number]/[facility] #: [id number] MTDD
--- NOTE | 2017-09-03 06:29 | CONS ---
NEUROLOGY CONSULTATION REPORT: DATE OF CONSULT: 09/02/17 LOCATION: The patient is in the emergency department. REQUESTING PHYSICIAN: Dr. Lorenzo. REASON FOR CONSULT: Lara Person. HISTORY OF PRESENT ILLNESS: Mary Sanchez is an 86-year-old woman with a history of hypertension, not on antihypertensives currently, as well as a recent history of diverticulitis and UTI, and probable mild dementia, who presented to the emergency department with garbled speech and some confusion. Her symptoms began around 3 p.m. when her son was speaking to her on the phone and she commented that she was not feeling well and then he noticed as they were speaking, her speech became progressively garbled to the point where he could no longer understand her. She continued to repeat "I don't feel well" despite him asking to speak with his sister, who is staying at the house with her. As a result, he hung up and called his sister, who was in another room, and when she went to Ms. Sanchez, she also noted garbled speech and confusion. Her grandson, who is at the bedside, says that over the past couple of days she seems to have had some word-finding difficulties as well, but this was not necessarily noted today, more so dysarthria. She was brought into the emergency room and her blood pressure was as high as 218/95. She began to clear once she was here despite still having elevated blood pressures. Her daughter states that she was admitted in July for diverticulitis and UTI at which point she was taken off her antihypertensive medication and was not put on anything else as of yet. She does not take a baby aspirin or other antiplatelet agent. It appears that her previous antihypertensive was lisinopril/HCTZ and she had been recently treated with Cipro for her infections. PAST MEDICAL HISTORY: 1. Hypertension. 2. Possible mild early dementia. 3. History of GERD. 4. History of osteoporosis. 5. History of cataracts. 6. Headaches. PAST SURGICAL HISTORY: Hysterectomy, tonsillectomy, and appendectomy. FAMILY HISTORY: Her sister had a stroke and father had cirrhosis related to alcoholism. SOCIAL HISTORY: She is a heavy smoker for many, many years of a pack a day. The chart indicates that she drinks a martini or two each evening. Otherwise, no illicit substance use. She lives alone, but her daughter is staying with her this summer. REVIEW OF SYSTEMS: She denies any chest pains, palpations, breathing difficulties. PHYSICAL EXAM: Vital Signs: Temperature 99.3, blood pressure 218/[address] Lorenzo to me verbally and in the chart 213/90 with no other blood pressures recorded as of yet since 1600, heart rate 93, oxygen saturation 98% on room air. On general examination, she was in no acute distress, but appeared mildly confused and repeatedly asked the nurse if she could smoke in the hospital. Her heart was in a regular rate and rhythm with no obvious murmur. Lungs are clear to auscultation. I did not auscultate any carotid bruits. She has no lower extremity edema. On neurologic exam, she was oriented to the month and was 1 year off on her age stating that she was 85. She is able to follow commands with ease. Her speech was not dysarthric and there was no obvious aphasia as she was able to describe the [place] [employer] picture and name objects without difficulty. Pupils are equal, round, and reactive from 4 to 2 mm. Versions are full without nystagmus. West are full to confrontation. Facial sensation and musculature is full and symmetric. Hearing is intact to voice. The palate elevates symmetrically and the tongue is midline. On motor examination, she has full strength in the upper and lower extremities with no pronator drift. Sensation was intact to light touch with no extinction to double simultaneous stimulation. [id number] and [id number] are intact without ataxia. Reflexes were 2+ in the upper extremities and at the knees, absent at the ankles with downgoing toes bilaterally. I did not ambulate her in the emergency department. Her NIH Stroke Scale was 1 for the level of consciousness questions. DIAGNOSTIC STUDIES/LAB DATA: Her CBC shows a platelet count of 483, white blood cell count of 7.6, hematocrit 38, hemoglobin 12.5. Chemistry panel shows a sodium of 132, chloride of 99, slightly elevated [id number] ratio of 23.1, glucose of 102. Her nonfasting lipid profile shows triglycerides of 115, total cholesterol 231, LDL 154, HDL 54.5. Her urinalysis was negative. Her noncontrast brain CT was personally reviewed and showed no evidence for acute infarction or hemorrhage. There is age-appropriate atrophy with evidence of periventricular small vessel disease. IMPRESSION: Mary Sanchez is an 86-year-old woman with a history of hypertension, not currently on antihypertensive medications, not on any antiplatelet agent, who comes in with transient dysarthria, and possibly some confusion as well in the setting of very elevated blood pressures. The differential includes transient ischemic attack versus hypertensive emergency. Dr. Lorenzo was working on lowering her blood pressure, but the patient was improving despite her elevated blood pressures. PLAN: I spoke with Dr. Mendez about having the patient come in for stroke workup including MRI scan of the brain and I recommended carotid Dopplers rather than CT angiogram of the head and neck as I did not think the CTA would be likely to add much to management. She should be placed on aspirin 81 mg daily and given this in the emergency room as well. She should be ordered for echocardiogram and placed on telemetry with fasting lipid profile and hemoglobin A1c checked in the morning. Thank you for this consultation. [id number]/[facility] #: [id number] KELSIE
--- NOTE | 2017-09-03 07:20 | PN ---
Subjective Date of Service: 09/03/17 Interval History: She reports no issues overnight. No further episodes of slurred speech or difficulty with word finding. She does not appear confused this morning. Has a good sense of humor. She denies any headache, vision changes, focal numbness , tingling or weakness. She feels back to her baseline and wants to go home. Objective Active Medications: Amlodipine Besylate (Norvasc Tab*) 2.5 mg PO DAILY [facility] Aspirin (Ecotrin Ec Tab*) 325 mg PO DAILY [facility] Enoxaparin Sodium (Lovenox(*)) 40 mg SUBCUT Q24H [facility] Last Admin: 09/02/17 22:22 Dose: 40 mg Lisinopril (Prinivil Tab*) 20 mg PO DAILY [facility] Vital Signs 09/02/17 09/02/17 09/02/17 16:00 17:14 17:15 Temperature 99.3 F Pulse Rate 93 84 80 Respiratory 15 Rate Blood Pressure 213/90 212/88 (mmHg) O2 Sat by Pulse 98 96 99 Oximetry 09/02/17 09/02/17 20:00 21:22 Temperature 98.7 F Pulse Rate 78 Respiratory 15 Rate Blood Pressure 133/62 (mmHg) O2 Sat by Pulse 100 96 Oximetry Oxygen Devices in Use Now: None Neurology Exam: General: HEENT: Normocephalic/atraumatic, sclera anicteric, mucous membranes moist Neck: Supple, no bruits Chest: Clear to auscultation bilaterally Cardiovascular: Regular rate and rhythm without murmurs, rubs, gallops Abdomen: Soft, nontender/nondistended Extremities: No clubbing, cyanosis, or edema Neurological Findings: Awake, Alert, Oriented x3 Speech: fluent without dysarthria, repetition intact Cranial Nerve: PEERL, EOM intact, VFF, no nystagmus, face symmetric bilaterally , facial sensation intact, hearing intact to finger rub bilaterally, palate elevates symmetrically, tongue midline, SCM and Trapezius s/s. Motor: 5/5 throughout, proximal and distal extremities x4 tone/bulk normal Sensation: intact to LT/PP bilaterally upper and lower extremities Deep Tendon Reflex: 1+ symmetric in the upper/lower extremities, Babinski - equivocal Finger to nose, rapid alternating movements intact without tremor Result Diagrams: 09/02/17 16:48 06/22/18 16:48 Assessment/Plan 86 year old with a history of HTN, on no meds at presentation, presented with garbled speech and some confusion. In the ER, blood pressure up to 212/80 which was improving with meds. NIH in ER 1. Patient was improving at that time. --MRI shows chronic ischemic changes, no acute stroke --Carotids show no significant stenosis At this point, suspect TIA vs. HTN Emergency --Continue ASA --Continue tight BP control. Meds per Primary --Follow lipids. Cholesterol elevated. Would add statin but defer to primary, in the setting of TIA, goal LDL < 70 --No history of DM --Can have outpatient Echo --She admits to smoking: The importance of smoking cessation discussed No further neuro workup at this time. I will be happy to see the patient in follow up once discharged. I will sign off for now but remain available with any new or concerning issues.
[2017-09-03 08:04] VITALS: BP 156/60
[2017-09-03] MEDS ORDERED: Lisinopril TAB* 10 MG PO SCH (09:00)
[2017-09-03] MEDS ORDERED: Aspirin EC TAB* 325 MG PO SCH (09:00)
[2017-09-03] MEDS ORDERED: Hydrochlorothiazide TAB* 25 MG PO SCH (09:00)
[2017-09-03] MEDS ORDERED: amLODIPine TAB* 5 MG PO SCH (09:00)
--- NOTE | 2017-09-03 09:06 | PN ---
Subjective - Subjective Reason for Note: Discharge Note History: DISCHARGE SUMMARY I have reviewed Mary Farah's presentation with the patient and in Dr. Alannah Reveles's detailed history and physical. She had approximately 1 hour of dysphasia that was witnessed by her son on a phone call and other family members. She has had no recurrence since. She had accelerated hypertension in the emergency room. Today, she is back to baseline. She has had no dysrhythmias on telemetry. She denies headache, problems with any focal neurological symptom. Her BP is controlled. She would like to go home. 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 Osteoporosis (Chronic) M81.0 Vertebral compression fracture (Chronic) [id number] Current Medications: Current Medications Amlodipine Besylate (Norvasc Tab*) 2.5 mg PO DAILY [facility] Last Admin: 09/03/17 08:17 Dose: 2.5 mg Aspirin (Ecotrin Ec Tab*) 325 mg PO DAILY [facility] Last Admin: 09/03/17 08:17 Dose: 325 mg Enoxaparin Sodium (Lovenox(*)) 40 mg SUBCUT Q24H [facility] Last Admin: 09/02/17 22:22 Dose: 40 mg Lisinopril (Prinivil Tab*) 20 mg PO DAILY [facility] Last Admin: 09/03/17 08:18 Dose: 20 mg - Review of Systems Constitutional Symptoms: No: Weakness, Fatigue Pulmonary: Negative: Cough, Sputum Cardiology: Negative: Chest Pain, Shortness of Breath, Palpitations, Swelling of Ankles Gastroenterology: Negative: Abdominal Pain, Nausea, Vomiting, Change in Bowel Habits Genital - Urinary: Negative: Dysuria, Polyuria Neurology: Positive: Change in Speech - see above, Hx of Stroke\TIA Negative: Headache, Diplopia, Dizziness, Change in Coordination Home Medications: Home Medications Medication Instructions Recorded Confirmed Type Lisinopril/HCTZ (NF) 1 tab PO QAM 08/11/17 09/02/17 History [Zestoretic (NF)] Ciprofloxacin TAB* [Cipro 500 MG 500 mg PO DAILY #14 tab 08/14/17 09/02/17 Rx TAB*] Allergies: Allergies Allergy/AdvReac Type Severity Reaction Status Date / Time No Known Allergies Allergy Verified 10/31/13 11:41 Objective - Vital Signs Vital Signs: Vital Signs 09/02/17 09/02/17 09/02/17 16:00 17:14 17:15 Temperature 99.3 F Pulse Rate 93 84 80 Respiratory 15 Rate Blood Pressure 213/90 212/88 (mmHg) O2 Sat by Pulse 98 96 99 Oximetry 09/02/17 09/02/17 09/02/17 20:00 20:55 21:22 Temperature 98.4 F 98.7 F Pulse Rate 63 78 Respiratory 18 15 Rate Blood Pressure 141/59 133/62 (mmHg) O2 Sat by Pulse 100 100 96 Oximetry 09/03/17 09/03/17 09/03/17 00:13 04:22 05:20 Temperature 98.5 F Pulse Rate 69 65 62 Respiratory 20 20 Rate Blood Pressure 151/57 179/57 148/58 (mmHg) O2 Sat by Pulse 98 99 Oximetry 09/03/17 07:54 Temperature 97.8 F Pulse Rate 59 Respiratory 12 Rate Blood Pressure 156/60 (mmHg) O2 Sat by Pulse 100 Oximetry - Intake and Output Intake and Output: Intake & Output 08/31/17 09/01/17 09/02/17 09/03/17 11:59 11:59 11:59 11:59 Intake Total 125 Output Total 100 Balance 25 Weight 112 lb 11.2 oz Intake: Oral 125 Output: Straight Cath 100 Other: Estimated Void Medium # Bowel Movements 0 # Voids 1 ADLs: Meal Record Start: 09/02/17 20: 55 Freq: DAILY@0900,1400,1800 Status: Active Protocol: Created 09/02/17 20:55 System (Rec: 09/02/17 20:55 System [email or web address]) Intake and Output Start: 09/02/17 16: 03 Freq: Status: Active Protocol: Created 09/02/17 16:03 System (Rec: 09/02/17 16:03 System [id number]) Document 09/02/17 17:47 [id number] (Rec: 09/02/17 18:24 [id number]) Intake and Output Start: 09/02/17 20: 55 Freq: DAILY@0600,1400,2200 Status: Active Protocol: Created 09/02/17 20:55 System (Rec: 09/02/17 20:55 System [id number]) Document 09/03/17 06:00 [id number] (Rec: 09/03/17 07:24 [id number]) - Physical Exam General Physical Exam Comment: Warm and well perfused. She is able to give an account of herself, but doesn't recall the episode clearly. She can sit up independently from lying in the bed and walk down the [place]iver[place] with a walker. Her speech is normal General: No Cyanosis, No Anemia, No Jaundice, No Clubbing Lungs and Chest: Yes: Chest Expansion Full, Chest Expansion Symetrica, Percussion Note Resonant, Vessicular Breath Sounds. No: Crackles, Wheezes Heart Rate and Rhythm: Regular JVP: Not Elevated Additional Cardiovascular: Yes: Normal Heart Sounds. No: Heart Murmur, Pedal Edema Abdominal Exam: Yes: Soft, Bowel Sounds Present. No: Distention, Abdominal Tenderness - Extremities Cranial Nerves II-XII Intact: Yes Limbs: Normal Power, Normal Tone, Normal Coordination - finger-nose, Normal Gait - with walker - Neuro Orientation: Person, Place Speech: Normal Results - Results Lab Results: Laboratory Results - last 24 hr 09/02/17 09/02/17 09/02/17 16:48 16:48 16:48 WBC 7.6 RBC 4.47 Hgb 12.5 Hct 38 MCV 85 MCH 28 MCHC 33 RDW 16 H Plt Count 483 H D MPV 7.1 L Neut % (Auto) 69.0 Lymph % (Auto) 19.7 L [place] % (Auto) 9.2 H Eos % (Auto) 1.9 Baso % (Auto) 0.2 Absolute Neuts (auto) 5.2 Absolute Lymphs (auto) 1.5 Absolute Monos (auto) 0.7 Absolute Eos (auto) 0.1 Absolute Basos (auto) 0 Absolute Nucleated RBC 0 Nucleated RBC % 0.1 INR (Anticoag Therapy) APTT Sodium 132 L Potassium 4.1 Chloride 99 L Carbon Dioxide 27 Anion Gap 6 BUN 15 Creatinine 0.65 Est GFR ( Amer) 104.6 Est GFR (Non-Af Amer) 86.4 BUN/Creatinine Ratio 23.1 H Glucose 102 H Lactic Acid Calcium 9.5 Total Bilirubin 0.50 AST 13 ALT 8 Alkaline Phosphatase 47 Troponin I 0.00 C-Reactive Protein 3.98 Total Protein 6.4 Albumin 3.6 Globulin 2.8 Albumin/Globulin Ratio 1.3 Triglycerides 115 Cholesterol 231 LDL Cholesterol 154 HDL Cholesterol 54.5 Urine Color Urine Appearance Urine pH Ur Specific [place] Urine Protein Urine Ketones Urine Blood Urine Nitrate Urine Bilirubin Urine Urobilinogen Ur Leukocyte Esterase Urine Glucose Blood Type AB Positive Antibody Screen Negative 09/02/17 09/02/17 09/02/17 17:30 17:47 18:00 WBC RBC Hgb Hct MCV MCH MCHC RDW Plt Count MPV Neut % (Auto) Lymph % (Auto) [place] % (Auto) Eos % (Auto) Baso % (Auto) Absolute Neuts (auto) Absolute Lymphs (auto) Absolute Monos (auto) Absolute Eos (auto) Absolute Basos (auto) Absolute Nucleated RBC Nucleated RBC % INR (Anticoag Therapy) 0.90 APTT 27.6 Sodium Potassium Chloride Carbon Dioxide Anion Gap BUN Creatinine Est GFR ( Amer) Est GFR (Non-Af Amer) BUN/Creatinine Ratio Glucose Lactic Acid 1.1 Calcium Total Bilirubin AST ALT Alkaline Phosphatase Troponin I C-Reactive Protein Total Protein Albumin Globulin Albumin/Globulin Ratio Triglycerides Cholesterol LDL Cholesterol HDL Cholesterol Urine Color Yellow Urine Appearance Clear Urine pH 7.0 Ur Specific [place] 1.018 Urine Protein Negative Urine Ketones 1+ A Urine Blood Negative Urine Nitrate Negative Urine Bilirubin Negative Urine Urobilinogen Negative Ur Leukocyte Esterase Negative Urine Glucose Negative Blood Type Antibody Screen Radiology Results: Patient Name: MARY FARAH Medical Record#: [id number] Ordering Physician: Lena Lorenzo MD Acct.#: [id number] : 1930 Age: 86 Sex: F Location: EMERGENCY DEPARTMENT Exam Date: 09/02/171646 ADM Status: REG ER Order Information: CT BRAIN WO Accession Number: [id number] CPT: 16071 INDICATION: Confusion and word finding difficulty. COMPARISON: None. TECHNIQUE: Contiguous axial sections of the brain were obtained from the skull base to the vertex without contrast. FINDINGS: The ventricles, cisterns and sulci mild and symmetrical involutional changes not out of proportion for the patient's age.. There is mild to moderate periventricular and subcortical white matter hypoattenuation most consistent with chronic microvascular disease. The bernal-white matter differentiation is adequately maintained and there is no sulcal effacement. No significant focal abnormality or mass effect is present. There is no evidence for intracranial hemorrhage. There is coarse atherosclerotic calcification of the bilateral vertebral arteries and the bilateral petrous carotid arteries. No significant focal osseous abnormality is present. The visualized portion of the paranasal sinuses appear clear. The mastoid air cells are well aerated bilaterally. IMPRESSION: CT findings are compatible with age-appropriate involutional changes and chronic microvascular disease. There is no noncontrast CT apparent acute intracranial abnormality including intracranial hemorrhage. Findings were reported to Dr. Lorenzo over the telephone at 1710 hours on August. <Electronically signed by Norris Cuba MD in OV> 09/02/171711 Dictated By: Norris Cuba MD Dictated Date/Time: 09/02/171711 Transcribed Date/Time: 09/02/171706 Copy to: CC:Pineda Mendez MD; Lena Lorenzo MD Imaging - [facility] 1 of 2 Patient Name: MARY FARAH Medical Record#: [id number] Ordering Physician: Lena Lorenzo MD Acct.#: [id number] : 1930 Age: 86 Sex: F Location: [address] [place] [address] MEDICAL/TELEMETRY Exam Date: 09/02/171742 ADM Status: ADM Hector Order Information: MRI BRAIN W/O Accession Number: [id number] CPT: 06876 HISTORY: aphasia resolved, HTN COMPARISONS: Same day CT of the brain that shows evidence of chronic microvascular disease. TECHNIQUE: The following sequences were obtained of the head: Sagittal T1- weighted images, axial T2-weighted images, axial FLAIR images, axial susceptibility weighted images, axial T1-weighted images. Additionally, axial diffusion-weighted images were obtained with calculated apparent diffusion coefficients.. FINDINGS: HEMORRHAGE/INFARCT: There is no hemorrhage or acute infarct. MASSES/SHIFT: There is no mass or shift. EXTRA-AXIAL SPACES/MENINGES: There are no extra-axial fluid collections. SULCI AND VENTRICLES: The sulci and ventricles are normal in size and position for the patient's stated age. CEREBRUM: There is periventricular and subcortical white matter T2 bright hyperintensity predominantly adjacent to the ventricles with additional smaller subcentimeter foci scattered bilaterally. The brain parenchyma is otherwise normal in signal and the bernal-white matter differentiation is maintained. BRAINSTEM: There are no focal parenchymal abnormalities. CEREBELLUM: There are no focal parenchymal abnormalities. The cerebellar tonsils are normal in size and position. SELLA: The sella is normal. PINEAL: The pineal region is clear. CP ANGLE/TEMPORAL BONES: The labyrinthine structures are grossly normal. VESSELS: Normal flow-voids are noted within the visualized vertebral vasculature. DIFFUSION ABNORMALITIES: There are no diffusion abnormalities. PARANASAL SINUSES/MASTOIDS: The paranasal sinuses are clear. ORBITS: The orbits are unremarkable. BONES AND SOFT TISSUE: No bone or soft tissue abnormalities are noted. IMPRESSION: MR FINDINGS ARE MOST CONSISTENT WITH CHRONIC MICROVASCULAR DISEASE DESCRIBED ABOVE. IF THERE IS CLINICAL SUSPICION FOR ACUTE DEMYELINATING DISEASE FURTHER CHARACTERIZATION WITH CONTRAST-ENHANCED MRI OF THE BRAIN IS ADVISED. <Electronically signed by Norris Cuba MD in OV> 09/02/172046 Dictated By: Norris Cuba MD Dictated Date/Time: 09/02/172046 Transcribed Date/Time: 09/02/172043 Copy to: 1 of 2 Patient Name: MARY FARAH Medical Record#: [id number] Ordering Physician: Lena Lorenzo MD Acct.#: [id number] : 1930 Age: 86 Sex: F Location: EMERGENCY DEPARTMENT Exam Date: 09/02/171646 ADM Status: REG ER Order Information: CHEST AP PORTABLE Accession Number: [id number] CPT: 74085 INDICATION: Acute neurologic deficits. COMPARISON: Chest x-ray August 11, 2017 TECHNIQUE: Single AP portable view of the chest was obtained. FINDINGS: Image quality is compromised due to the relative inferiority of a portable chest x-ray. The heart and mediastinum exhibit normal size and contour. There is stable calcification overlying the arch of the aorta. The lungs are grossly clear. There is no evidence of a large pleural effusion. Visualized bones are normal for the patient's age. IMPRESSION: No radiographic evidence for acute cardiopulmonary abnormality on this portable chest x-ray. <Electronically signed by Norris Cuba MD in OV> 09/02/171723 Dictated By: Norris Cuba MD Dictated Date/Time: 09/02/171723 Transcribed Date/Time: 09/02/171722 Copy to: CC:Pineda Mendez MD; Lena Lorenzo MD Imaging - [facility] [place] [facility] [address] [address] ph [phone]) ph ([phone]) ph ([phone]) Patient Name: MARY FARAH Medical Record#: [id number] Ordering Physician: Lena Lorenzo MD Acct.#: [id number] : 1930 Age: 86 Sex: F Location: EMERGENCY DEPARTMENT Exam Date: 09/02/171743 ADM Status: REG ER Order Information: VL CAROTID BILATERAL Accession Number: [id number] CPT: 47589 CPT II Codes: 3100F INDICATION: Resolving aphasia COMPARISON: None TECHNIQUE: Multiple nolen scale, color and doppler tracings of the common, internal and external carotid and vertebral arteries were obtained. Stenosis estimations reflect velocity criteria that have been correlated to angiographic stenosis calculations based on the distal internal carotid diameter. Right carotid: There is mild partially calcified plaque within the right carotid bulb. The peak systolic velocity in the proximal right internal carotid artery is 74 cm/s and the maximum end-diastolic velocity is 22 cm/s. The peak systolic velocity in the distal common carotid artery is 86 cm/s and the maximum end-diastolic velocity is 17 cm/s. The internal to common carotid ratio is 0.8. This would be consistent with a less than 50% stenosis. Left carotid: There is mild and moderately calcified plaque within the left carotid bulb. The peak systolic velocity in the proximal right internal carotid artery is 63 cm/s and the maximum end-diastolic velocity is 18 cm/s. The peak systolic velocity in the distal common carotid artery is 71 cm/s and the maximum end-diastolic velocity is 14 cm/s. The internal to common carotid ratio is 0.89. This would be consistent with a less than 50% stenosis. Vertebrals: There is antegrade flow in both vertebral arteries. IMPRESSION: There is no sonographic evidence of hemodynamically significant stenosis in the bilateral carotid arteries. <Electronically signed by Norris Cuba MD in [place]> 09/02/171920 Dictated By: Norris Cuba MD Dictated Date/Time: 09/02/171920 Transcribed Date/Time: 09/02/171918 Copy to: CC:Pineda Mendez MD; Lena Lorenzo MD Imaging - [facility] [place] [facility] EKG Report: EKG 09/02/17 Rate 73 ME 140 QTc 414 QRS axis 4 degrees Normal sinus rhythm Assessment - Problem List Assessment: Patient Problems Accelerated hypertension (Acute) Dysphasia (Acute) TIA (transient ischemic attack) (Acute) Depression (Chronic) Essential hypertension (Chronic) GERD (gastroesophageal reflux disease) (Chronic) Hypo-osmolality and hyponatremia (Chronic) Low back pain (Chronic) Memory impairment of gradual onset (Chronic) Osteoporosis (Chronic) Vertebral compression fracture (Chronic) DNR (do not resuscitate) (Chronic) Plan: Accelerated hypertension (Acute) Dysphasia (Acute) TIA (transient ischemic attack) (Acute) She had a discrete episode of dysphasia/altered speech that was self limited and has not recurred. This was coincidental with accelerated hypertension. I note there is some atheromatous plaque at her left carotid bulb - this may be the source of a small atheromatous embolus. There is no sign of any change on the MRI of an acute CVA. The accelerated hypertension could well be secondary to anxiety (she has a history of this). The alternative explanation is that this was due to a hypertensive emergency. However, I doubt this as this is clearly described as dysphasia and not as altered mental status. It resolved rapidly without any generalized encephalopathy - this favors to my mind TIA rather than hypertensive cause. I will send her home on aspirin 81 mg qdaily and amlodipine plus lisinopril. I will stop the HCTZ Depression (Chronic) stable Essential hypertension (Chronic) see above GERD (gastroesophageal reflux disease) (Chronic) secondary diagnosis Hypo-osmolality and hyponatremia (Chronic) This is mild - I will follow Dr. Reveles's advice and stop her HCTZ Low back pain (Chronic) secondary diagnosis Memory impairment of gradual onset (Chronic) secondary diagnosis Osteoporosis (Chronic) secondary diagnosis Vertebral compression fracture (Chronic) secondary diagnosis I have restored her to full code as she can't make up her mind about this today. I spoke to the patient and informed her of the above. I spoke with her daughter Marli Chaney. I informed her that she would be going home on amlodipine, lisinopril and Asa 81 mg qdaily. She will follow up in my office early this coming week
[2017-09-04] MEDS ORDERED: Aspirin EC TAB* 325 MG PO SCH (09:00)
== END 2017-09-03 12:30 | disposition home or self-care (01) ==
LOC: ED 15:50 → MEDTELE 19:33
PROVIDERS: ADMIT Internal Medicine; ATTEND Internal Medicine
DX: G45.9 Transient cerebral ischemic attack, unspecified (principal); R47.01 Aphasia; I10 Essential (primary) hypertension; K21.9 Gastro-esophageal reflux disease without esophagitis; M81.0 Age-related osteoporosis without current pathological fracture; F32.9 Major depressive disorder, single episode, unspecified; E87.1 Hypo-osmolality and hyponatremia; M54.5 Low back pain; F03.90 Unspecified dementia, unspecified severity, without behavioral disturbance, psychotic disturbance, mood disturbance, and anxiety; Z79.899 Other long term (current) drug therapy; Z82.3 Family history of stroke; F17.210 Nicotine dependence, cigarettes, uncomplicated
CPT/HCPCS: 36415; 70450; 70551; 71045; 80053; 80061; 81003; 83605; 84484; 85025; 85610; 85730; 86140; 86850; 86900; 86901; 93005; 93880; 96372; 96374; 99284; A9270-GY; G0378; J1650

== ENCOUNTER 2017-11-27 17:31 | Emergency (ER) | payer MEDICARE ==
[2017-11-27 17:39] VITALS: BP 144/79
--- NOTE | 2017-11-27 17:55 | UC ---
Ear Complaint HPI - HPI Summary HPI Summary: The patient is an 86 y/o F presenting to [facility] accompanied by her son with a chief complaint of a decrease in hearing bilaterally for the last two days. She states that she can hear the TV with little problem, but she is unable to hear herself talking. There is no pain associated. She additionally c/o headache that she had that has since been relieved. She denies fevers, chills, CP, SOB, and dizziness. She denies the use of Q-tips in her ears. She has hx of HTN ( medicated), diverticulosis, and possible TIA. - History of Current Complaint Chief Complaint: UCEar Stated Complaint: EAR COMPLAINT Time Seen by Provider: 11/27/17 17:37 Hx Obtained From: Patient Onset/Duration: Sudden Onset, Lasting Days - two, Still Present Severity Initially: Moderate Severity Currently: Moderate Pain Intensity: 0 Pain Scale Used: 0-10 Numeric Aggravating Factors: Nothing Alleviating Factors: Nothing Associated Signs/Symptoms: Positive: Hearing Loss - bilaterally - Allergies/Home Medications Allergies/Adverse Reactions: Allergies Allergy/AdvReac Type Severity Reaction Status Date / Time No Known Allergies Allergy Verified 11/27/17 17:39 PMH/Surg Hx/FS Hx/Imm Hx Previously Healthy: Yes Other Endocrine History: negative Cardiovascular History: Hypertension - medicated Other Cardiovascular History: negative Other Respiratory History: negative GI/ History: Other - diverticulosis Other GI/ History: negative Neurological History: Other - possible TIA not completely RO Other Neurological History: negative Other Psychological History: negative - Surgical History Surgical History: Yes Surgery Procedure, Year, and Place: 40 YEARS AGO-EXPLORATORY AND PARTIAL HYSTERECTOMY. TONSILLECTOMY. APPY - Family History Known Family History: Positive: Other - Cirrhosis, alcoholism (father), stroke ( sister) - Social History Alcohol Use: Occasionally Alcohol Amount: MARTINI OR 2 IN THE EVENING Substance Use Type: None Smoking Status (MU): Heavy Every Day Tobacco Smoker Amount Used/How Often: >1/2 PPD X 64 YEARS Have You Smoked in the Last Year: Yes - Immunization History Most Recent Influenza Vaccination: received in the past Most Recent Pneumonia Vaccination: received in past Review of Systems Constitutional: Negative, Other Skin: Negative Eyes: Negative ENT: Other - loss of hearing bilaterally, especially when talking Respiratory: Negative, Other - NEGATIVE: SOB Cardiovascular: Negative, Other - NEGATIVE: CP Gastrointestinal: Negative Genitourinary: Negative Motor: Negative Neurovascular: Negative Musculoskeletal: Negative Neurological: Headache - relieved, Other - NEGATIVE: dizziness Psychological: Negative Is Patient Immunocompromised?: No All Other Systems Reviewed And Are Negative: Yes Physical Exam - Summary Physical Exam Summary: Appearance: Well-Appearing, No Pain Distress, Well-Nourished Eyes: conjunctiva clear, no discharge ENT: Hearing grossly normal, no muffled/hoarse voice. Bilateral external auditory canal with impacted cerumen noted. No drainage or signs of infection. Neck: Normal, Supple Respiratory/Lung Sounds: Lungs clear, Normal breath sounds, No respiratory distress, No accessory muscle use Cardiovascular: RRR, No murmur Abdomen: Nontender, Soft, no guarding, not distended Bowel Sounds: Present Musculoskeletal: Normal Neurological: Alert, muscle tone normal Psychiatric:Normal, age appropriate behavior Skin: Normal, Warm, Dry, Normal color Triage Information Reviewed: Yes Vital Signs: Initial Vital Signs Temp 98.4 F 11/27/17 17:36 Pulse 86 11/27/17 17:36 Resp 18 11/27/17 17:36 BP 144/79 11/27/17 17:36 Pulse Ox 99 11/27/17 17:36 Vital Signs Reviewed: Yes Ear Complaint Course/Dx - Course Course Of Treatment: During the visit today, both her ears were irrigated and the wax was removed. Reexamination demonstrated normal tympanic membranes bilaterally. No excoriation or bleeding or signs of infection noted. I advised her to use [id number] Debrox to prevent this. Patient expressed understanding . - Differential Dx/Diagnosis Provider Diagnoses: Bilateral ear canal impacted cerumen Discharge - Sign-Out/Discharge Documenting (check all that apply): Patient Departure - Patient will be discharged home. All imaging exams completed and their final reports reviewed: No Studies - Discharge Plan Condition: Stable Disposition: HOME Patient Education Materials: Cerumen Impaction (ED) Referrals: Pineda Mendez MD [Primary Care Provider] - If Needed Additional Instructions: Your year were irrigated today and all the wax was removed. you can use over- the-counter Debrox ear drops once a week to prevent impaction of wax. Patients blood pressure slightly high in Urgent care today , plan follow up with PCP for better control Return to Urgent care / ER if symptoms get worse. - Billing Disposition and Condition Condition: STABLE Disposition: Home - Attestation Statements Document Initiated by Seanibtoni: Yes Documenting Scribe: Karla Jackson Provider For Whom Yusef is Documenting (Include Credential): Dr. Mk Mcintosh MD Scribe Attestation: I, Karla Jackson, scribed for Dr. Mk Mcintosh MD on 11/27/17 at 1910. Scribe Documentation Reviewed: Yes Provider Attestation: The documentation as recorded by the Karla cano accurately reflects the service I personally performed and the decisions made by me, Dr. Mk Mcintosh MD
== END 2017-11-27 19:25 | disposition home or self-care (01) ==
LOC: UCEAST 17:31
DX: H61.23 Impacted cerumen, bilateral (principal); F17.210 Nicotine dependence, cigarettes, uncomplicated
CPT/HCPCS: 99213; G0463